=== PATIENT | female | born 1935 | race Hispanic/Latino ===

== ENCOUNTER 2018-08-11 13:05 | Inpatient (IN) | payer MEDICARE ==
--- NOTE | 2018-08-11 14:26 | C.PDOC ---
History Of Present Illness 83 Y/O FEMALE PRESENTS TO ED WITH C/O GEN WEAKNESS, DECREASED APPETITE X 1 WEEK. PATIENT STATES SHE WAS ADVISED BY PMD TO INCREASE DOSE OF AMLODIPINE 1 WEEK AGO, SINCE THEN "I FEEL LIKE EVERYTHING IS FLUTTERING AFTER TAKING THE MEDICINE". NO CP, NEAR SYNCOPE, NV, ABD PAIN OR ANY OTHER COMPLAINTS AT THIS TIME. EXAM MILD DIST NONTOXIC HEENT NEG ABD NEG LUNGS NEG CV RRR NO EDEMA REMAINDER NEG Time Seen by Provider: 08/11/18 14:23 Chief Complaint (Nursing): Chest Pain History Per: Patient History/Exam Limitations: no limitations Onset/Duration Of Symptoms: Days Past Medical History Reviewed: Historical Data, Nursing Documentation, Vital Signs Vital Signs: Last Vital Signs Temp 97.8 F 08/11/18 13:09 Pulse 80 08/11/18 13:09 Resp 22 08/11/18 13:09 BP 121/79 08/11/18 13:09 Pulse Ox 98 08/11/18 13:09 - Medical History PMH: HTN Surgical History: Appendectomy - [facility] Procedures ANGIOPLASTY OF OTHER NON-CORONARY VESSEL(S) (09/26/14) INJECT/INFUSE NEC (05/03/14) INSEJ [id number] PERIPHERAL NON-CORONARY VES STENT(S) (09/26/14) INSERTION OF ONE VASCULAR STENT (09/26/14) PROCEDURE ON SINGLE VESSEL (09/26/14) Family History: States: No Known Family Hx - Social History Hx Tobacco Use: No Hx Alcohol Use: No Hx Substance Use: No - Immunization History Hx Tetanus Toxoid Vaccination: No Hx Influenza Vaccination: No Hx Pneumococcal Vaccination: No Review Of Systems Constitutional: Positive for: Weakness. Negative for: Fever, Chills Cardiovascular: Negative for: Chest Pain Gastrointestinal: Negative for: Nausea, Vomiting Skin: Negative for: Rash Physical Exam - Physical Exam Appears: Non-toxic, Other (In mild distress) Skin: Warm, Dry, No Rash Head: Atraumatic, Normacephalic Eye(s): bilateral: Normal Inspection Oral Mucosa: Moist Neck: Normal ROM, Supple Cardiovascular: Rhythm Regular Respiratory: Normal Breath Sounds, No Rales, No Rhonchi, No Wheezing Gastrointestinal/Abdominal: Soft, No Tenderness, No Guarding, No Rebound Extremity: Normal ROM, No Pedal Edema, Capillary Refill (<2 seconds) Neurological/Psych: Oriented x3, Normal Speech, Normal Cognition ED Course And Treatment - Laboratory Results Result Diagrams: 08/11/18 15:34 08/11/18 15:34 ECG: Interpreted By Me ECG Rhythm: Sinus Rhythm ECG Interpretation: Normal Rate From EC (BPM) O2 Sat by Pulse Oximetry: 98 (RA) Pulse Ox Interpretation: Normal Reevaluation Time: 17:49 Reassessment Condition: Improved (CO GEN WEAKNESS "IM AFRAID TO BE HOME BY MYSELF". VSS) - Physician Consult Information Time Consulting Physician Contacted: 18:05 Physician Contacted: Umberto Alvarado Outcome Of Conversation: aware of er findings, will admit Disposition Counseled Patient/Family Regarding: Diagnosis, Need For Followup - Disposition Disposition: HOSPITALIZED Disposition Time: 18:07 Condition: STABLE Instructions: Weakness (ED) Forms: [facility] (Armenian) - POA Present On Arrival: None - Clinical Impression Clinical Impression: Hypokalemia, Weakness generalized, Poor appetite - Scribe Statement The provider has reviewed the documentation as recorded by the Lesleyibvaleria Holley All medical record entries made by the Lesleyibvaleria were at my direction and personally dictated by me. I have reviewed the chart and agree that the record accurately reflects my personal performance of the history, physical exam, medical decision making, and the department course for this patient. I have also personally directed, reviewed, and agree with the discharge instructions and disposition.
[2018-08-11] MEDS ORDERED: Sodium Chloride 0.9% 500 ML IV ONE ×2 (14:53→16:36)
[2018-08-11] MEDS ORDERED: Sodium Chloride 0.9% 1,000 ML IV ONE (14:53)
[2018-08-11 15:39] LABS: BASO % 0.6 % (0.0-2.0); EOS % 0.5 % (0.0-4.0); HEMOGLOBIN 11.8 g/dL (11.0-16.0); LYMPH % 12.9 % (20.0-40.0); MEAN CELL VOLUME 92.5 fL (81.0-99.0); MEAN CORPUSCULAR HEMOGLOBIN 31.2 pg (27.0-31.0); MEAN CORPUSCULAR HGB CONC 33.8 g/dL (33.0-37.0); MEAN PLATELET VOLUME 7.7 fL (7.2-11.7); MONO # 0.5 K/uL (0.0-0.8); MONO % 6.5 % (0.0-10.0); NEUT # 5.9 K/uL (1.8-7.0); NEUT % 79.5 % (50.0-75.0); NRBC % 0.1 % (0.0-2.0); RBC 3.76 Mil/uL (3.80-5.20); WHITE BLOOD COUNT 7.4 K/uL (4.8-10.8)
--- NOTE | 2018-08-11 15:41 | RAD ---
Date of service: 08/11/2018 PROCEDURE: CHEST RADIOGRAPH, 1 VIEW HISTORY: SOB COMPARISON: Comparison chest dated 11/25/2014 FINDINGS: LUNGS: Mild bibasilar atelectasis left greater than right. Additionally, there is a discrete curvilinear atelectasis or scar left CP angle region PLEURA: No pneumothorax or pleural fluid seen. CARDIOVASCULAR: Normal. OSSEOUS STRUCTURES: No significant abnormalities. VISUALIZED UPPER ABDOMEN: Normal. OTHER FINDINGS: None. IMPRESSION: Mild bibasilar atelectasis left greater than right. Additionally, there is a discrete curvilinear atelectasis or scar left CP angle region
[2018-08-11 16:06] LABS: ALB/GLOB RATIO 1.3 (1.0-2.1); ALBUMIN 3.7 g/dL (3.5-5.0)
[2018-08-11] MEDS ORDERED: Potassium Chloride 20 mEq/15 ml LIQ UD PO STA (16:07)
[2018-08-11 16:14] LABS: VENOUS BLOOD GAS BASE EXCESS 11.2 mmol/L (0.0-2.0); VENOUS BLOOD GAS PCO2 42 mmHg (40-60); VENOUS BLOOD GAS PO2 24 mm/Hg (30-55); VENOUS BLOOD PH 7.53 (7.32-7.43)
[2018-08-11] MEDS ORDERED: Sodium Chloride 0.9% 1,000 ML ONE (16:36)
[2018-08-11] MEDS ORDERED: Potassium Chloride 20 mEq/15 ml LIQ UD ONE (16:37)
[2018-08-11] MEDS ORDERED: Potassium Chloride 20 mEq 100 ML ONE (16:38)
--- NOTE | 2018-08-11 16:57 | CT ---
Date of service: 08/11/2018 PROCEDURE: CT HEAD WITHOUT CONTRAST. HISTORY: R/O Bleed COMPARISON: None available. TECHNIQUE: Axial computed tomography images were obtained through the head/brain without intravenous contrast. Radiation dose: Total exam DLP = 1015.53 mGy-cm. This CT exam was performed using one or more of the following dose reduction techniques: Automated exposure control, adjustment of the mA and/or kV according to patient size, and/or use of iterative reconstruction technique. FINDINGS: HEMORRHAGE: No intracranial hemorrhage. BRAIN: Diffuse atrophy with prominence of the ventricles and sulci noted. No mass effect or edema. Intracranial atherosclerosis. Evidence of small chronic infarction, right cerebellum. Scattered periventricular and subcortical white matter hypodensities, which are nonspecific, but often seen with chronic microvascular ischemic disease. Please note that MRI with diffusion imaging is more sensitive in the detection of acute ischemic event. VENTRICLES: No hydrocephalus. CALVARIUM: Unremarkable. PARANASAL SINUSES: Unremarkable as visualized. No significant inflammatory changes. MASTOID AIR CELLS: Unremarkable as visualized. No inflammatory changes. OTHER FINDINGS: None. IMPRESSION: Evidence of small chronic infarction within the right cerebellum. Nonspecific white matter changes. Generalized atrophy.
[2018-08-11 18:02] LABS: FREE T4 1.43 ng/dL (0.78-2.19)
[2018-08-11 18:27] LABS: SQUAMOUS EPITHIAL < 1 /hpf (0-5); URINE BILIRUBIN NEGATIVE (NEGATIVE); URINE BLOOD 1+ (NEGATIVE); URINE CLARITY Clear (Clear); URINE COLOR Straw (YELLOW); URINE GLUCOSE (UA) NORMAL (Normal); URINE LEUKOCYTE ESTERASE NEG Leu/uL (Negative); URINE PROTEIN NEGATIVE (NEGATIVE); URINE UROBILINOGEN NORMAL mg/dL (0.2-1.0)
[2018-08-11] MEDS: Potassium Chloride 20 mEq ER Tab PO SCH (22:08)
[2018-08-12 08:28] LABS: CALCIUM 8.9 mg/dl (8.6-10.4)
[2018-08-12] MEDS: Potassium Chloride 20 mEq ER Tab PO SCH (09:34)
--- NOTE | 2018-08-12 21:47 | CP.PCM.HP ---
History of Present Illness - History of Present Illness History of Present Illness: 83 years old female with PMH significant for HTN who presents to ER complaining of generalized weakness, dizziness and nausea. At initial evaluation patient found with Hypokalemia. Patient denies headache, chest pain abdominal pain, vomiting or diarrhea. Present on Admission - Present on Admission Any Indicators Present on Admission: No Review of Systems - Constitutional Constitutional: Malaise, Weakness - Cardiovascular Cardiovascular: Lightheadedness Past Patient History - Infectious Disease Hx of Infectious Diseases: None - Past Medical History & Family History Past Medical History?: Yes - Past Social History Smoking Status: Never Smoked - CARDIAC Hx Hypertension: Yes - PULMONARY Hx Respiratory Disorders: No - NEUROLOGICAL Hx Neurological Disorder: No - HEENT Hx HEENT Problems: No - RENAL Hx Chronic Kidney Disease: No - ENDOCRINE/METABOLIC Hx Endocrine Disorders: No - HEMATOLOGICAL/ONCOLOGICAL Hx Human Immunodeficiency Virus (HIV): No - INTEGUMENTARY Hx Dermatological Problems: No - MUSCULOSKELETAL/RHEUMATOLOGICAL Hx Falls: No - GENITOURINARY/GYNECOLOGICAL Hx Genitourinary Disorders: No - PSYCHIATRIC Hx Substance Use: No - SURGICAL HISTORY Hx Appendectomy: Yes - ANESTHESIA Hx Anesthesia: Yes Hx Anesthesia Reactions: No Meds Allergies/Adverse Reactions: Allergies Allergy/AdvReac Type Severity Reaction Status Date / Time iodine Allergy Verified 09/09/16 21:00 Sulfa (Sulfonamide Allergy Verified 09/09/16 21:00 Antibiotics) trimethoprim Allergy Verified 09/09/16 21:00 SEAFOOD Allergy Uncoded 09/09/16 21:00 Physical Exam - Constitutional Appears: Non-toxic, No Acute Distress - Head Exam Head Exam: ATRAUMATIC, NORMAL INSPECTION, NORMOCEPHALIC - Eye Exam Eye Exam: EOMI, Normal appearance Pupil Exam: PERRL - ENT Exam ENT Exam: Mucous Membranes Moist, Normal Exam - Neck Exam Neck exam: Positive for: Full Rom, Normal Inspection - Respiratory Exam Respiratory Exam: Clear to Auscultation Bilateral, NORMAL BREATHING PATTERN - Cardiovascular Exam Cardiovascular Exam: REGULAR RHYTHM, +S1, +S2 - GI/Abdominal Exam GI & Abdominal Exam: Normal Bowel Sounds, Soft - Neurological Exam Neurological exam: Alert, CN II-XII Intact, Oriented x3 - Psychiatric Exam Psychiatric exam: Flat Affect - Skin Skin Exam: Intact, Normal Color Results - Vital Signs Recent Vital Signs: Last Vital Signs Temp 98.1 F 08/12/18 15:27 Pulse 73 10/09/18 15:27 Resp 20 08/12/18 15:27 BP 111/65 08/12/18 15:27 Pulse Ox 96 08/12/18 16:23 - Labs Result Diagrams: 08/11/18 15:34 08/12/18 08:01 Labs: Laboratory Results - last 24 hr 08/12/18 08/12/18 08/12/18 08:01 17:05 17:05 Sodium 145 Potassium 3.2 L Chloride 102 Carbon Dioxide 34 H Anion Gap 13 BUN 14 Creatinine 1.1 Est GFR ( Amer) 57 Est GFR (Non-Af Amer) 47 Random Glucose 86 Calcium 8.9 Magnesium Ur Random Sodium 108 Ur Random Potassium 34.6 08/12/18 19:13 Sodium Potassium Chloride Carbon Dioxide Anion Gap BUN Creatinine Est GFR ( Amer) Est GFR (Non-Af Amer) Random Glucose Calcium Magnesium 2.0 Ur Random Sodium Ur Random Potassium Assessment & Plan (1) Hypokalemia Assessment and Plan: Replace Potassium. W/U Hypokalemia. Nephrology evaluation. Monitor Potassium levels. Patient case discussed with [facility]. Status: Acute (2) HTN (hypertension) Assessment and Plan: Continue same treatment. Status: Chronic Priority: Medium (3) Cerebellar infarct Assessment and Plan: Neurology evaluation. Status: Acute
[2018-08-13 07:05] LABS: BASO # 0.1 K/uL (0.0-0.2); BASO % 1.1 % (0.0-2.0); EOS # 0.3 K/uL (0.0-0.7); EOS % 4.4 % (0.0-4.0); LYMPH # 1.8 K/uL (1.0-4.3); LYMPH % 29.8 % (20.0-40.0); MEAN CELL VOLUME 93.6 fL (81.0-99.0); MEAN CORPUSCULAR HEMOGLOBIN 32.4 pg (27.0-31.0); MEAN CORPUSCULAR HGB CONC 34.6 g/dL (33.0-37.0); MONO # 0.5 K/uL (0.0-0.8); MONO % 8.9 % (0.0-10.0); NEUT # 3.4 K/uL (1.8-7.0); NEUT % 55.8 % (50.0-75.0); NRBC % 0.2 % (0.0-2.0); RBC 3.41 Mil/uL (3.80-5.20); WHITE BLOOD COUNT 6.1 K/uL (4.8-10.8)
--- NOTE | 2018-08-13 07:23 | CP.PCM.CON ---
History of Present Illness - History of Present Illness History of Present Illness: CONSULTATION DICTATED MID CEREBELLAR DYSFUNCTION -HTN- SMALL Vs LARGE VESSEL DISEASE STROKE PROPHYLAXIS ??MYELOPROLIFERATIVE DISEASE MR//EEG/CAROTID/ECHO/BLOOD WORK UP PT & FALL PRECAUTION Past Patient History - Infectious Disease Hx of Infectious Diseases: None - Past Medical History & Family History Past Medical History?: Yes - Past Social History Smoking Status: Never Smoked - CARDIAC Hx Hypertension: Yes - PULMONARY Hx Respiratory Disorders: No - NEUROLOGICAL Hx Neurological Disorder: No - HEENT Hx HEENT Problems: No - RENAL Hx Chronic Kidney Disease: No - ENDOCRINE/METABOLIC Hx Endocrine Disorders: No - HEMATOLOGICAL/ONCOLOGICAL Hx Human Immunodeficiency Virus (HIV): No - INTEGUMENTARY Hx Dermatological Problems: No - MUSCULOSKELETAL/RHEUMATOLOGICAL Hx Falls: No - GENITOURINARY/GYNECOLOGICAL Hx Genitourinary Disorders: No - PSYCHIATRIC Hx Substance Use: No - SURGICAL HISTORY Hx Appendectomy: Yes - ANESTHESIA Hx Anesthesia: Yes Hx Anesthesia Reactions: No Meds Allergies/Adverse Reactions: Allergies Allergy/AdvReac Type Severity Reaction Status Date / Time iodine Allergy Verified 09/09/16 21:00 Sulfa (Sulfonamide Allergy Verified 09/09/16 21:00 Antibiotics) trimethoprim Allergy Verified 09/09/16 21:00 SEAFOOD Allergy Uncoded 09/09/16 21:00 - Medications Medications: Current Medications Acetaminophen (Tylenol 325mg Tab) 650 mg PO Q4 PRN PRN Reason: Pain, Mild (1-3) Last Admin: 08/12/18 21:18 Dose: 650 mg Clopidogrel Bisulfate (Plavix) 75 mg PO DAILY [facility] Heparin Sodium (Porcine) (Heparin) 5,000 units SC Q12 [facility] Last Admin: 08/12/18 21:16 Dose: Not Given Lorazepam (Ativan) 0.5 mg PO HS PRN PRN Reason: Sleep Last Admin: 08/12/18 21:16 Dose: 0.5 mg Potassium Chloride (K-Dur 20 Meq Er Tab) 20 meq PO DAILY [facility] Last Admin: 08/12/18 09:34 Dose: 20 meq Spironolactone (Aldactone) 25 mg PO BID [facility] Results - Vital Signs Recent Vital Signs: Last Vital Signs Temp 98.5 F 08/13/18 00:00 Pulse 71 08/13/18 00:00 Resp 20 08/13/18 00:00 BP 126/69 08/13/18 00:00 Pulse Ox 97 08/13/18 00:00 - Labs Result Diagrams: 08/11/18 15:34 08/12/18 08:01 Labs: Laboratory Results - last 24 hr 08/12/18 08/12/18 08/12/18 08:01 17:05 17:05 Sodium 145 Potassium 3.2 L Chloride 102 Carbon Dioxide 34 H Anion Gap 13 BUN 14 Creatinine 1.1 Est GFR ( Amer) 57 Est GFR (Non-Af Amer) 47 Random Glucose 86 Calcium 8.9 Magnesium Ur Random Sodium 108 Ur Random Potassium 34.6 08/12/18 19:13 Sodium Potassium Chloride Carbon Dioxide Anion Gap BUN Creatinine Est GFR ( Amer) Est GFR (Non-Af Amer) Random Glucose Calcium Magnesium 2.0 Ur Random Sodium Ur Random Potassium
[2018-08-13 07:30] LABS: ALB/GLOB RATIO 1.3 (1.0-2.1); ALBUMIN 3.3 g/dL (3.5-5.0); ALT/SGPT 24 U/L (9-52); AST/SGOT 25 U/L (14-36); BLOOD UREA NITROGEN 15 mg/dL (7-17); CALCIUM 8.7 mg/dl (8.6-10.4); GFR NON-AFRICAN AMERICAN 53
--- NOTE | 2018-08-13 08:13 | CARD ---
APPROVED REPORT Date of service: 08/11/2018 EKG Measurement Heart [id number] <Conclusion> Normal sinus rhythm Possible Left atrial enlargement Left axis deviation Junctional ST depression, probably normal Abnormal ECG
[2018-08-13] MEDS: Potassium Chloride 20 mEq ER Tab PO SCH (09:43)
[2018-08-13 10:14] LABS: HDL CHOLESTEROL 37 mg/dL (30-70)
[2018-08-13 10:29] LABS: LDL CHOLESTEROL 58 mg/dL (0-129)
[2018-08-13 10:36] LABS: PROLACTIN 21.4 ng/mL (3.0-18.9)
[2018-08-13 11:24] LABS: FOLATE > 20.0 ng/mL
--- NOTE | 2018-08-13 14:47 | MRI ---
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 TECHNIQUE: Multiplanar, multisequence MR images of the brain were obtained without intravenous contrast enhancement. FINDINGS: HEMORRHAGE: None DWI: No evidence of an acute or early subacute infarction. Chronic lacunes noted right cerebellum no evidence of lobar or lacunar infarct on acute or subacute basis. BRAIN PARENCHYMA: Good corticomedullary differentiation is seen. Proportional, diffuse expansion of the ventriculosulcal and cisternal spaces is appreciated with white matter lucency compatible with diffuse cerebral atrophy and chronic microangiopathy. No suspicious extra-axial fluid collection is identified and the midline brain anatomy appears grossly nonfocal as imaged. There is no mass effect throughout. VENTRICLES: Unremarkable. No hydrocephalus. CRANIUM: Unremarkable. ORBITS: Grossly unremarkable. PARANASAL SINUSES/MASTOIDS: Clear VASCULAR SYSTEM: Skull base flow voids intact. OTHER FINDINGS: None. IMPRESSION: Chronic lacunes right cerebellum. No evidence of acute or subacute brain infarction at this time. Age-appropriate age-related degenerative changes are identified.
--- NOTE | 2018-08-13 14:56 | VASCLAB ---
Date of service: 08/13/2018 PROCEDURE: Carotid Duplex Exam. HISTORY: Generalized weakness COMPARISON: None available. TECHNIQUE: Grayscale and duplex Doppler evaluation of the cervical carotid and vertebral arteries were performed. The common carotid, carotid bifurcations and cervical Internal Carotid Artery (ICA) and proximal External Carotid Artery (ECA) were evaluated. The vertebral arteries were evaluated for gross patency and flow direction. Report prepared by Emmanuel Chris, BS, RVT FINDINGS: RIGHT CAROTID ARTERIES: 1. Common Carotid Artery: No significant focal plaque formation of the right common carotid artery. Maximum Peak Systolic velocity: 81 cm/sec: End-diastolic velocity 17 cm/sec. 2. Carotid Bifurcation: plaque formation. Maximum Peak Systolic velocity: 71 cm/sec: End-diastolic velocity 116 cm/sec. 3. Internal Carotid Artery: Plaque description: Calcific 3.1. Proximal Segment: Peak systolic velocity 113 cm/sec: End-diastolic velocity 30 cm/sec - % stenosis 0-15% 3.2. Middle Segment: Peak systolic velocity 96 cm/sec: End-diastolic velocity 29 cm/sec - % stenosis 0-15% 3.3. Distal Segment: Peak systolic velocity 104 cm/sec: End-diastolic velocity 27 cm/sec - % stenosis 0-15% 4. External Carotid Artery: No significant focal plaque formation. Peak systolic velocity 91 cm/sec 5. ICA/CCA Ratio: 1.4 LEFT CAROTID ARTERIES: 1. Common Carotid Artery: No significant focal plaque formation of the left common carotid artery. Maximum Peak Systolic velocity: 137 cm/sec: End-diastolic velocity 17 cm/sec. 2. Carotid Bifurcation: plaque formation. Maximum Peak Systolic velocity: 94 cm/sec: End-diastolic velocity 13 cm/sec. 3. Internal Carotid Artery: Plaque description: Calcific 3.1. Proximal Segment: Peak systolic velocity 89 cm/sec: End-diastolic velocity 27 cm/sec - % stenosis 0-15% 3.2. Middle Segment: Peak systolic velocity 79 cm/sec: End-diastolic velocity 18 cm/sec - % stenosis 0-15% 3.3. Distal Segment: Peak systolic velocity 63 cm/sec: End-diastolic velocity 20 cm/sec - % stenosis 0-15% 4. External Carotid Artery: No significant focal plaque formation. Peak systolic velocity 115 cm/sec 5. ICA/CCA Ratio: 0.9 VERTEBRAL ARTERIES: 1. Right Vertebral Artery: The right vertebral artery flow direction is antegrade. 2. Left Vertebral Artery: The left vertebral artery flow direction is antegrade. OTHER FINDINGS: 1. Right Brachial Blood pressure: 130 mmHg. 2. Left Brachial Blood pressure: 122 mmHg. IMPRESSION: RIGHT: Duplex scan does not suggest hemodynamically significant stenosis of the right extracranial carotid arteries. LEFT: Duplex scan does not suggest hemodynamically significant stenosis of the left extracranial carotid arteries.
--- NOTE | 2018-08-13 15:17 | CARD ---
APPROVED REPORT Date of service: 08/13/2018 EXAM: Two-dimensional and M-mode echocardiogram with Doppler and color Doppler. Other Information Quality : GoodRhythm : INDICATION CVA/TIA RISK FACTORS Hypertension 2D DIMENSIONS IVSd0.8 (0.7-1.1cm)LVDd3.3 (3.9-5.9cm) PWd0.9 (0.7-1.1cm)LA Icdgtr03 (18-58mL) LVDs1.9 (2.5-4.0cm)FS (%) 43.7 % LVEF (%)76.1 (>50%)LVEF (Childs's)70.87 % IVC0.00 cm M-Mode DIMENSIONS Left Atrium (MM)3.90 (2.5-4.0cm)Aortic Root2.91 (2.2-3.7cm) Aortic Cusp Exc.1.67 (1.5-2.0cm) Mitral Valve MV E Aeotrayb78.5cm/sMV A Lqkelshb870.5cm/sE/A ratio0.5 TDI Lateral E' Peak V6.40cm/sMedial E' Peak V5.90cm/sE/Lateral E'10.9 E/Medial E'11.8 Tricuspid Valve TR Peak Ucgqrdzm202dc/sTR Peak Gr.07gpGlSHLQ95vqVd LEFT VENTRICLE The left ventricle is normal size. There is normal left ventricular wall thickness. The left ventricular systolic function is normal. The left ventricular ejection fraction is within the normal range. There is normal LV segmental wall motion. Transmitral Doppler flow pattern is Grade I-abnormal relaxation pattern. RIGHT VENTRICLE The right ventricle is normal size. The right ventricular systolic function is normal. ATRIA The left atrium size is normal. The right atrium size is normal. AORTIC VALVE The aortic valve is normal in structure. No aortic regurgitation is present. There is no aortic valvular stenosis. MITRAL VALVE The mitral valve is normal in structure. There is no mitral valve regurgitation noted. TRICUSPID VALVE The tricuspid valve is normal in structure. There is mild tricuspid regurgitation. Right ventricular systolic pressure is estimated at less than 30 mmHg. PULMONIC VALVE The pulmonic valve is not well visualized. GREAT VESSELS The aortic root displays mild sclerocalcific changes The IVC is normal in size and collapses >50% with inspiration. PERICARDIAL EFFUSION There is no pericardial effusion. <Conclusion> The left ventricular systolic function is normal. Diastoilic dysfunction Grade I-abnormal relaxation pattern. The right ventricular systolic function is normal. No valvular abnormality. The aortic root displays mild sclerocalcific changes There is no pericardial effusion.
--- NOTE | 2018-08-13 20:09 | CON ---
DATE: 08/13/2018 ATTENDING PHYSICIAN: Umberto Alvarado MD LOCATION: The patient is in room #564, bed B. REASON FOR CONSULTATION: Dizziness. CHIEF COMPLAINT: The patient was brought into [facility] (Formerly [facility]) with a history of about a week of lightheadedness and losing balance. From neurological point of view, I was called in to evaluate her for further management. HISTORY OF PRESENT ILLNESS: Ms. Maeve Lee is an 83-year-old right-handed female, usual state of health, presenting with about a week history of lack of appetite, lightheadedness and losing balance, has a tendency to fall on either side. No history of fall. No history of headache. No history of loss of consciousness or any involuntary movements associating with these problems. She denies any double vision. She denies speech and swallow problem. No similar episodes happened in the past. PAST MEDICAL HISTORY: Hypertension, been on medication. PERSONAL HISTORY: Denies smoking or alcohol use. PAST SURGICAL HISTORY: Appendectomy, gallbladder surgery, hysterectomy. REVIEW OF SYSTEMS: A 12-point system being reviewed. From neuro, dizziness. MEDICATIONS: Aldactone, heparin, potassium, Tylenol. PHYSICAL EXAMINATION: VITAL SIGNS: Blood pressure 126/69, mean arterial pressure of 88, respiratory rate 18, pulse rate 71 and regular, temperature 98.5 degrees Fahrenheit. NECK: Supple. No carotid bruits. HEART: S1 and S2 regular. CHEST: Fair air entry. EXTREMITIES: No edema in legs. NEUROLOGICAL: Mental status; she is awake, alert and oriented to person, place and time. Speech is clear. Naming, repetition, fluency, comprehension intact. She seems to be depressed. No sign of hallucination. No sign of suicidal ideation. Cranial nerve; visual field intact. Pupils reactive to light. Extraocular movement intact. No primary gaze nystagmus. No facial sensory deficit. No facial asymmetry. Hearing is normal. Tongue is midline. Good gag. Motor; outstretched hand with eyes closed, no drift noted. Power is symmetric on either side. Deep tendon reflexes in biceps, brachialis, triceps 1+ on either side. Both knees are 2+. Both ankles are 1+. Plantars are downgoing. Sensory examination is grossly intact. No cortical sensory loss. Coordination, lxvqfq-igrd-[id number] test is intact. Gait deferred at this time. CONCLUSION: As per neurological examination, Ms. Maeve Lee has been presenting with subacute process of lightheadedness and losing balance all consistent with mid cerebellar dysfunction. Considering the history of hypertension, probably small vessel disease affecting her posterior fossa, ischemic process, probably the cerebellum. DIAGNOSTIC DATA: CT of the head has been reviewed consistent with right cerebellar infarct, which seems to be subacute versus old. LABORATORY DATA: Blood workup; WBC 7.4, hemoglobin 11.8, hematocrit 34.8, platelet 438. Sodium 145, potassium 3.2, chloride 102, bicarbonate 34, BUN 14, creatinine 1.1, GFR 57. Urine shows 1+ hematuria. RECOMMENDATIONS: 1. The patient should be on stroke prophylaxis including antiplatelet, statin and probable angiotensin receptor blockers which would be preferable. 2. Carotid Doppler to assess the stenosis. 3. MRI of the brain to further establish stroke involvement in the cerebellum as well as the other part of the brain. 4. Echocardiogram to rule out any cardiac source for her stroke. 5. The patient should be out of bed and physical therapy should be instituted. 6. The patient should be hydrated well. Keep her on fall precaution. The patient condition has been well discussed. The patient will be followed closely with you. Davon Siegel MD
--- NOTE | 2018-08-13 20:56 | CP.PCM.PN ---
Subjective - Date & Time of Evaluation Date of Evaluation: 08/13/18 Time of Evaluation: 20:54 - Subjective Subjective: Patient lying in bed in no apparent distress. Objective - Vital Signs/Intake and Output Vital Signs (last 24 hours): Temp Pulse Resp BP Pulse Ox 97.8 F 88 20 151/79 H 95 08/13/18 16:41 08/13/18 16:41 08/13/18 16:41 08/13/18 17:36 08/13/18 16:41 - Medications Medications: Current Medications Acetaminophen (Tylenol 325mg Tab) 650 mg PO Q4 PRN PRN Reason: Pain, Mild (1-3) Last Admin: 08/12/18 21:18 Dose: 650 mg Clopidogrel Bisulfate (Plavix) 75 mg PO DAILY [facility] Last Admin: 08/13/18 09:43 Dose: 75 mg Heparin Sodium (Porcine) (Heparin) 5,000 units SC Q12 [facility] Last Admin: 08/13/18 09:43 Dose: 5,000 units Lorazepam (Ativan) 0.5 mg PO HS PRN PRN Reason: Sleep Last Admin: 08/12/18 21:16 Dose: 0.5 mg Potassium Chloride (K-Dur 20 Meq Er Tab) 20 meq PO DAILY [facility] Last Admin: 08/13/18 09:43 Dose: 20 meq Spironolactone (Aldactone) 25 mg PO BID [facility] Last Admin: 08/13/18 17:37 Dose: 25 mg - Labs Labs: 08/13/18 06:27 08/13/18 06:27 - Constitutional Appears: Well, Non-toxic, No Acute Distress - Head Exam Head Exam: ATRAUMATIC, NORMAL INSPECTION, NORMOCEPHALIC - Eye Exam Eye Exam: EOMI, Normal appearance, PERRL - Neck Exam Neck Exam: Full ROM, Normal Inspection - Respiratory Exam Respiratory Exam: Clear to Ausculation Bilateral, NORMAL BREATHING PATTERN - Cardiovascular Exam Cardiovascular Exam: REGULAR RHYTHM - GI/Abdominal Exam GI & Abdominal Exam: Soft, Normal Bowel Sounds - Extremities Exam Extremities Exam: Full ROM, Normal Capillary Refill, Normal Inspection - Back Exam Back Exam: NORMAL INSPECTION - Neurological Exam Neurological Exam: Alert, Awake, CN II-XII Intact, Oriented x3 Assessment and Plan (1) Hypokalemia Assessment & Plan: BMP in AM. Continue same treatment. Status: Acute (2) HTN (hypertension) Assessment & Plan: Continue same treatment. Status: Chronic (3) Cerebellar infarct Assessment & Plan: Continue same treatment. Status: Acute
--- NOTE | 2018-08-14 05:55 | CP.PCM.CON ---
History of Present Illness - History of Present Illness History of Present Illness: REASONS FOR CONSULT : UNPROVOKED HYPO KALEMIA WITH K 2.4 0N ADMISSION MET ALKALOSIS WITH PH 7.52 AND HCO2 34 ALL EMR REVIEWED ALL LABS REVIEWED THOUROUGHLY GOING BACK TO ALL THE ADMISSIONS SINCE 2010 PT DID HAVE HYPOKALEMIA ON HER ADMISSION IN 2014 K WAS 3.2 PT STATES THAT SHE IS AWARE OF HAVING LOW K ONCE BEFO 83 years old female with PMH significant for HTN who presents to ER com plaining of generalized weakness, dizziness and nausea. At initial evaluation patient found with Hypokalemia. Patient denies headache, chest pain abdominal pain, vomiting or diarrhea. Present on Admission - Present on Admission Any Indicators Present on Admission: No Review of Systems - Constitutional Constitutional: Malaise, Weakness - Cardiovascular Cardiovascular: Lightheadedness Past Patient History - Infectious Disease Hx of Infectious Diseases: None - Past Medical History & Family History Past Medical History?: Yes - Past Social History Smoking Status: Never Smoked - CARDIAC Hx Hypertension: Yes - PULMONARY Hx Respiratory Disorders: No - NEUROLOGICAL Hx Neurological Disorder: No - HEENT Hx HEENT Problems: No - RENAL Hx Chronic Kidney Disease: No - ENDOCRINE/METABOLIC Hx Endocrine Disorders: No - HEMATOLOGICAL/ONCOLOGICAL Hx Human Immunodeficiency Virus (HIV): No - INTEGUMENTARY Hx Dermatological Problems: No - MUSCULOSKELETAL/RHEUMATOLOGICAL Hx Falls: No - GENITOURINARY/GYNECOLOGICAL Hx Genitourinary Disorders: No - PSYCHIATRIC Hx Substance Use: No - SURGICAL HISTORY Hx Appendectomy: Yes - ANESTHESIA Hx Anesthesia: Yes Hx Anesthesia Reactions: No Meds Allergies/Adverse Reactions: Allergies Allergy/AdvReac Type Severity Reaction Status Date / Time iodine Allergy Verified 09/09/16 21:00 Sulfa (Sulfonamide Allergy Verified 09/09/16 21:00 Antibiotics) trimethoprim Allergy Verified 09/09/16 21:00 SEAFOOD Allergy Uncoded 09/09/16 21:00 Past Patient History - Infectious Disease Hx of Infectious Diseases: None - Past Medical History & Family History Past Medical History?: Yes - Past Social History Smoking Status: Never Smoked - CARDIAC Hx Hypertension: Yes - PULMONARY Hx Respiratory Disorders: No - NEUROLOGICAL Hx Neurological Disorder: No - HEENT Hx HEENT Problems: No - RENAL Hx Chronic Kidney Disease: No - ENDOCRINE/METABOLIC Hx Endocrine Disorders: No - HEMATOLOGICAL/ONCOLOGICAL Hx Human Immunodeficiency Virus (HIV): No - INTEGUMENTARY Hx Dermatological Problems: No - MUSCULOSKELETAL/RHEUMATOLOGICAL Hx Falls: No - GENITOURINARY/GYNECOLOGICAL Hx Genitourinary Disorders: No - PSYCHIATRIC Hx Substance Use: No - SURGICAL HISTORY Hx Appendectomy: Yes - ANESTHESIA Hx Anesthesia: Yes Hx Anesthesia Reactions: No Meds Allergies/Adverse Reactions: Allergies Allergy/AdvReac Type Severity Reaction Status Date / Time iodine Allergy Verified 09/09/16 21:00 Sulfa (Sulfonamide Allergy Verified 09/09/16 21:00 Antibiotics) trimethoprim Allergy Verified 09/09/16 21:00 SEAFOOD Allergy Uncoded 09/09/16 21:00 - Medications Medications: Current Medications Acetaminophen (Tylenol 325mg Tab) 650 mg PO Q4 PRN PRN Reason: Pain, Mild (1-3) Last Admin: 08/13/18 22:07 Dose: 650 mg Clopidogrel Bisulfate (Plavix) 75 mg PO DAILY [facility] Last Admin: 08/13/18 09:43 Dose: 75 mg Heparin Sodium (Porcine) (Heparin) 5,000 units SC Q12 [facility] Last Admin: 08/13/18 22:08 Dose: 5,000 units Lorazepam (Ativan) 0.5 mg PO HS PRN PRN Reason: Sleep Last Admin: 08/13/18 22:08 Dose: 0.5 mg Potassium Chloride (K-Dur 20 Meq Er Tab) 20 meq PO DAILY [facility] Last Admin: 08/13/18 09:43 Dose: 20 meq Spironolactone (Aldactone) 25 mg PO BID [facility] Last Admin: 08/13/18 17:37 Dose: 25 mg Results - Vital Signs Recent Vital Signs: Last Vital Signs Temp 98.2 F 08/13/18 23:30 Pulse 81 08/13/18 23:30 Resp 20 08/13/18 23:30 BP 96/60 L 08/13/18 23:30 Pulse Ox 96 08/13/18 23:30 - Labs Result Diagrams: 08/13/18 06:27 08/13/18 06:27 Labs: Laboratory Results - last 24 hr 08/13/18 08/13/18 08/13/18 06:27 06:27 09:59 WBC 6.1 RBC 3.41 L Hgb 11.0 Hct 31.9 L MCV 93.6 MCH 32.4 H MCHC 34.6 RDW 14.0 Plt Count 371 MPV 8.0 Neut % (Auto) 55.8 Lymph % (Auto) 29.8 Hand % (Auto) 8.9 Eos % (Auto) 4.4 H Baso % (Auto) 1.1 Neut # (Auto) 3.4 Lymph # (Auto) 1.8 Hand # (Auto) 0.5 Eos # (Auto) 0.3 Baso # (Auto) 0.1 Sodium 141 Potassium 3.5 L Chloride 100 Carbon Dioxide 32 H Anion Gap 13 BUN 15 Creatinine 1.0 Est GFR ( Amer) > 60 Est GFR (Non-Af Amer) 53 Random Glucose 81 Calcium 8.7 Total Bilirubin 0.3 AST 25 ALT 24 Alkaline Phosphatase 91 Total Protein 5.9 L Albumin 3.3 L Globulin 2.6 Albumin/Globulin Ratio 1.3 Triglycerides 81 Cholesterol 119 LDL Cholesterol Direct 58 HDL Cholesterol 37 Vitamin B12 851 Folate > 20.0 Homocysteine 8.6 Prolactin 21.4 H Assessment & Plan - Assessment and Plan (Free Text) Assessment: HYPOKALEMIA WITH MET ALKALOSIS R/O LURDES SYNDROME .. R/O BARTER SYNDROME HTN .. MILD H/O AAA ENDO REPAIRIN 2014 P ; START ALDACTON 25 MG PO BID HOLD AMLODIPIN F/U ON K LEVEL - Date & Time Date: 08/13/18 Time: 13:00
[2018-08-14 08:09] LABS: BASO # 0.1 K/uL (0.0-0.2); BASO % 0.9 % (0.0-2.0); EOS # 0.3 K/uL (0.0-0.7); EOS % 5.1 % (0.0-4.0); HEMOGLOBIN 12.3 g/dL (11.0-16.0); LYMPH # 1.8 K/uL (1.0-4.3); LYMPH % 30.7 % (20.0-40.0); MEAN CELL VOLUME 92.4 fL (81.0-99.0); MEAN CORPUSCULAR HEMOGLOBIN 31.7 pg (27.0-31.0); MEAN CORPUSCULAR HGB CONC 34.3 g/dL (33.0-37.0); MEAN PLATELET VOLUME 7.6 fL (7.2-11.7); MONO # 0.5 K/uL (0.0-0.8); MONO % 7.7 % (0.0-10.0); NEUT # 3.3 K/uL (1.8-7.0); NEUT % 55.6 % (50.0-75.0); RBC 3.86 Mil/uL (3.80-5.20); RED CELL DISTRIBUTION WIDTH 14.4 % (11.5-14.5)
[2018-08-14 08:23] LABS: BLOOD UREA NITROGEN 16 mg/dL (7-17); CALCIUM 9.3 mg/dl (8.6-10.4); GFR NON-AFRICAN AMERICAN 43
[2018-08-14] MEDS: Potassium Chloride 20 mEq ER Tab PO SCH (09:29)
--- NOTE | 2018-08-14 11:11 | RAD ---
Date of service: 08/14/2018 HISTORY: Chest Pain COMPARISON: 08/11/2018 FINDINGS: LUNGS: There is subsegmental atelectasis/scarring in the lower lobes. No focal consolidation. PLEURA: No significant pleural effusion identified, no pneumothorax apparent. CARDIOVASCULAR: Normal. OSSEOUS STRUCTURES: No significant abnormalities. VISUALIZED UPPER ABDOMEN: Normal. OTHER FINDINGS: None. IMPRESSION: No acute findings.
[2018-08-14 14:12] LABS: CK-MB 0.26 ng/mL (0.0-3.38)
--- NOTE | 2018-08-14 14:38 | PN ---
DATE: 08/14/2018 TIME OF EVALUATION: 07:20 a.m. NEUROLOGICAL PROBLEM: Possible vertebrobasilar insufficiency versus vestibulopathy. PHYSICAL EXAMINATION: VITAL SIGNS: Blood pressure 90/60, mean arterial pressure of 72, respiratory rate 18, pulse rate 81 and regular, temperature 98.2. The patient is complaining of left-sided chest discomfortness and right occipital region pain. Examination which is unchanged. Cranial nerve examinations are normal. Motor examination is normal. No finger-nose testing abnormality. Deep tendon reflexes are symmetric on either side. 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 Rest of the examinations are normal. The patient is on antiplatelets. Continue the blood pressure medication. Keep the mean arterial pressure of 100. The patient should get out of the bed. Considering her chest discomfortness, I asked the nurse to do stat electrocardiogram to rule out any cardiac pathology. The patient will be followed during the hospitalization. Davon Siegel MD
--- NOTE | 2018-08-14 16:44 | CP.PCM.PN ---
Subjective - Date & Time of Evaluation Date of Evaluation: 08/14/18 Time of Evaluation: 16:41 - Subjective Subjective: Patient complains of Chest pain, denies shortness of breath or dizziness. . Objective - Vital Signs/Intake and Output Vital Signs (last 24 hours): Temp Pulse Resp BP Pulse Ox 97.6 F 81 18 150/76 100 08/14/18 15:00 08/14/18 16:13 08/14/18 15:00 08/14/18 15:00 08/14/18 15:41 Intake and Output: 08/14/18 08/14/18 06:59 18:59 Intake Total 500 700 Balance 500 700 - Medications Medications: Current Medications Acetaminophen (Tylenol 325mg Tab) 650 mg PO Q4 PRN PRN Reason: Pain, Mild (1-3) Last Admin: 08/13/18 22:07 Dose: 650 mg Clopidogrel Bisulfate (Plavix) 75 mg PO DAILY [facility] Last Admin: 08/14/18 09:29 Dose: 75 mg Heparin Sodium (Porcine) (Heparin) 5,000 units SC Q12 [facility] Last Admin: 08/14/18 09:29 Dose: 5,000 units Lorazepam (Ativan) 0.5 mg PO HS PRN PRN Reason: Sleep Last Admin: 08/13/18 22:08 Dose: 0.5 mg Potassium Chloride (K-Dur 20 Meq Er Tab) 20 meq PO DAILY [facility] Last Admin: 08/14/18 09:29 Dose: 20 meq Spironolactone (Aldactone) 25 mg PO BID [facility] Last Admin: 08/14/18 09:29 Dose: 25 mg - Labs Labs: 08/14/18 08:00 08/14/18 08:00 - Constitutional Appears: Well, Non-toxic - Head Exam Head Exam: ATRAUMATIC, NORMAL INSPECTION, NORMOCEPHALIC - Eye Exam Eye Exam: EOMI Pupil Exam: PERRL - Neck Exam Neck Exam: Full ROM, Normal Inspection - Respiratory Exam Respiratory Exam: Clear to Ausculation Bilateral, NORMAL BREATHING PATTERN - Cardiovascular Exam Cardiovascular Exam: REGULAR RHYTHM, +S1, +S2 - GI/Abdominal Exam GI & Abdominal Exam: Soft, Normal Bowel Sounds - Extremities Exam Extremities Exam: Full ROM, Normal Capillary Refill, Normal Inspection Assessment and Plan (1) Hypokalemia Assessment & Plan: Continue Spironolactone. Status: Resolved (2) HTN (hypertension) Assessment & Plan: Continue same treatment. Status: Chronic (3) Cerebellar infarct Assessment & Plan: Continue Plavix. Status: Acute (4) Chest pain Assessment & Plan: Cardiac Enzymes x 3. ECG. CXR. Cardiology evaluation. Status: Acute
--- NOTE | 2018-08-14 17:14 | CP.PCM.CON ---
History of Present Illness - History of Present Illness History of Present Illness: I was asked to see patient by Dr Alvarado. Patient is a 83 year old female with HTN, hypercholsterolemia who initially presented with ataxia. She guido generalized weakness. The patient is currently being evaluated by Dr Siegel. The patient states symptoms occur at rest. She has not had chest pain previously. Review of Systems - Constitutional Constitutional: absent: As Per HPI, Anorexia, Chills, Daytime Sleepiness, Excessive Sweating, Fatigue, Fever, Frequent Falls, Headache, Increased Appetite, Lethargy, Malaise, Night Sweats, Snoring, Sleep Apnea, Weight Gain, W eight Loss, Weakness, Other - EENT Eyes: absent: As Per HPI, Blind Spots, Blurred Vision, Change in Vision, Decreased Night Vision, Diplopia, Discharge, Dry Eye, Exophthalmos, Floaters, Irritation, Itchy Eyes, Loss of Peripheral Vision, Pain, Photophobia, Requires Corrective Lenses, Sees Flashes, Spots in Vision, Tunnel Vision, Other Visual Disturbances, Loss of Vision, Other Ears: absent: As Per HPI, Decreased Hearing, Ear Discharge, Ear Pain, Tinnitus, Abnormal Hearing, Disequilibrium, Dizziness, Other Nose/Mouth/Throat: absent: As Per HPI, Epistaxis, Nasal Congestion, Nasal Discharge, Nasal Obstruction, Nasal Trauma, Nose Pain, Post Nasal Drip, Sinus Pain, Sinus Pressure, Bleeding Gums, Change in Voice, Dental Pain, Dry Mouth, Dysphagia, Halitosis, Hoarsness, Lip Swelling, Mouth Lesions, Mouth Pain, Odynophagia, Sore Throat, Throat Swelling, Tongue Swelling, Facial Pain, Neck Pain, Neck Mass, Other - Breasts Breasts: absent: As Per HPI, Change in Shape, Mass, Pain, Nipple Discharge, Nipple Inversion, Skin Changes, Swelling, Other - Cardiovascular Cardiovascular: Chest Pain at Rest - Respiratory Respiratory: absent: As Per HPI, Cough, Dyspnea, Hemoptysis, Dyspnea on Exertio n, Wheezing, Snoring, Stridor, Pain on Inspiration, Chest Congestion, Excessive Mucous Production, Change in Mucous Color, Pain with Coughing, Other - Gastrointestinal Gastrointestinal: absent: As Per HPI, Abdominal Pain, Belching, Bloating, Change in Bowel Habits, Change in Stool Character, Coffee Ground Emesis, Constipation, Cramping, Diarrhea, Dyspepsia, Dysphagia, Early Satiety, Excessive Flatus, Fecal Incontinence, Heartburn, Hematemesis, Hematochezia, Loose Stools, Melena, Nausea, Odynophagia, Temesmus, Vomiting, Other - Genitourinary Genitourinary: absent: As Per HPI, Change in Urinary Stream, Difficulty Uri nating, Dysuria, Flank Pain, Hematuria, Pyuria, Nocturia, Urinary Incontinence, Urinary Frequency, Urinary Hesitance, Urinary Urgency, Voiding Freq/Small Amts, Freq UTI, Hx Renal/Bladder Calculi, Hx /Renal Surgery, Bladder Distension, Other - Musculoskeletal Musculoskeletal: absent: As Per HPI, Abnormal Gait, Arthralgias, Atrophy, Back Pain, Deformity, Joint Swelling, Limited Range of Motion, Loss of Height, Muscle Cramps, Muscle Weakness, Myalgias, Neck Pain, Numbness, Radiating Pain into Limb, Stiffness, Tingling, Other - Integumentary Integumentary: absent: As Per HPI, Acne, Alopecia, Bleeding Lesions, Change in Hair, Change in Nails, Change in Pigmentation, Changing Lesions, Dry Skin, Erythema, Furuncle, Hirsutism, Lesions, New Lesions, Non-Healing Lesions, Photosensitivity, Pruritus, Rash, Skin Pain, Skin Ulcer, Sores, Striae, Swelling, Unusual Bruising, Wounds, Jaundice, Other - Neurological Neurological: Disequilibrium - Psychiatric Psychiatric: absent: As Per HPI, Abnormal Sleep Pattern, Anhedonia, Anxiety, Auditory Hallucinations, Behavioral Changes, Change in Appetite, Change in Libido, Confusion, Depression, Difficulty Concentrating, Hallucinations, Homicidal Ideation, Hopelessness, Irritability, Memory Loss, Mood Swings, Panic Attacks, Paranoia, Suicidal Ideation, Visual Hallucinations, Tactile Hallucinations, Other - Endocrine Endocrine: absent: As Per HPI, Change in Body Appearance, Change in Libido, Cold Intolorance, Deepening of Voice, Excessive Sweating, Fatigue, Flushing, Heat Intolorance, Increase in Ring/Shoe/Hat Size, Palpitations, Polydipsia, Polyphagia, Polyuria, Other - Hematologic/Lymphatic Hematologic: absent: As Per HPI, Easy Bleeding, Easy Bruising, Lymphadenopathy, Other Past Patient History - Infectious Disease Hx of Infectious Diseases: None - Past Medical History & Family History Past Medical History?: Yes - Past Social History Smoking Status: Never Smoked - CARDIAC Hx Hypertension: Yes - PULMONARY Hx Respiratory Disorders: No - NEUROLOGICAL Hx Neurological Disorder: No - HEENT Hx HEENT Problems: No - RENAL Hx Chronic Kidney Disease: No - ENDOCRINE/METABOLIC Hx Endocrine Disorders: No - HEMATOLOGICAL/ONCOLOGICAL Hx Human Immunodeficiency Virus (HIV): No - INTEGUMENTARY Hx Dermatological Problems: No - MUSCULOSKELETAL/RHEUMATOLOGICAL Hx Falls: No - GENITOURINARY/GYNECOLOGICAL Hx Genitourinary Disorders: No - PSYCHIATRIC Hx Substance Use: No - SURGICAL HISTORY Hx Appendectomy: Yes - ANESTHESIA Hx Anesthesia: Yes Hx Anesthesia Reactions: No Meds Allergies/Adverse Reactions: Allergies Allergy/AdvReac Type Severity Reaction Status Date / Time iodine Allergy Verified 09/09/16 21:00 Sulfa (Sulfonamide Allergy Verified 09/09/16 21:00 Antibiotics) trimethoprim Allergy Verified 09/09/16 21:00 SEAFOOD Allergy Uncoded 09/09/16 21:00 - Medications Medications: Current Medications Acetaminophen (Tylenol 325mg Tab) 650 mg PO Q4 PRN PRN Reason: Pain, Mild (1-3) Last Admin: 08/13/18 22:07 Dose: 650 mg Clopidogrel Bisulfate (Plavix) 75 mg PO DAILY [facility] Last Admin: 08/14/18 09:29 Dose: 75 mg Heparin Sodium (Porcine) (Heparin) 5,000 units SC Q12 [facility] Last Admin: 08/14/18 09:29 Dose: 5,000 units Lorazepam (Ativan) 0.5 mg PO HS PRN PRN Reason: Sleep Last Admin: 08/13/18 22:08 Dose: 0.5 mg Potassium Chloride (K-Dur 20 Meq Er Tab) 20 meq PO DAILY [facility] Last Admin: 08/14/18 09:29 Dose: 20 meq Spironolactone (Aldactone) 25 mg PO BID [facility] Last Admin: 08/14/18 09:29 Dose: 25 mg Physical Exam - Constitutional Appears: Non-toxic - Head Exam Head Exam: NORMAL INSPECTION - Eye Exam Eye Exam: Normal appearance - ENT Exam ENT Exam: Mucous Membranes Moist - Neck Exam Neck exam: Positive for: Full Rom - Cardiovascular Exam Cardiovascular Exam: REGULAR RHYTHM - GI/Abdominal Exam GI & Abdominal Exam: Normal Bowel Sounds - Rectal Exam Rectal Exam: Deferred - Extremities Exam Extremities exam: Negative for: pedal edema - Back Exam Back exam: NORMAL INSPECTION - Neurological Exam Neurological exam: Alert, Oriented x3 - Psychiatric Exam Psychiatric exam: Normal Affect - Skin Skin Exam: Normal Color Results - Vital Signs Recent Vital Signs: Last Vital Signs Temp 97.6 F 08/14/18 15:00 Pulse 81 08/14/18 16:13 Resp 18 08/14/18 15:00 BP 150/76 08/14/18 15:00 Pulse Ox 100 08/14/18 15:41 - Labs Result Diagrams: 08/14/18 08:00 08/14/18 08:00 Labs: Laboratory Results - last 24 hr 08/12/18 08/14/18 08/14/18 17:05 08:00 08:00 WBC 6.0 RBC 3.86 Hgb 12.3 Hct 35.7 MCV 92.4 MCH 31.7 H MCHC 34.3 RDW 14.4 Plt Count 403 H MPV 7.6 Neut % (Auto) 55.6 Lymph % (Auto) 30.7 [place] % (Auto) 7.7 Eos % (Auto) 5.1 H Baso % (Auto) 0.9 Neut # (Auto) 3.3 Lymph # (Auto) 1.8 [place] # (Auto) 0.5 Eos # (Auto) 0.3 Baso # (Auto) 0.1 Sodium 141 Potassium 3.7 Chloride 97 L Carbon Dioxide 33 H Anion Gap 15 BUN 16 Creatinine 1.2 Est GFR ( Amer) 52 Est GFR (Non-Af Amer) 43 Random Glucose 85 Calcium 9.3 Total Creatine Kinase 23 L CK-MB (Mass) 0.30 Troponin I < 0.0120 Urine Chloride 122 08/14/18 13:41 WBC RBC Hgb Hct MCV MCH MCHC RDW Plt Count MPV Neut % (Auto) Lymph % (Auto) [place] % (Auto) Eos % (Auto) Baso % (Auto) Neut # (Auto) Lymph # (Auto) [place] # (Auto) Eos # (Auto) Baso # (Auto) Sodium Potassium Chloride Carbon Dioxide Anion Gap BUN Creatinine Est GFR ( Amer) Est GFR (Non-Af Amer) Random Glucose Calcium Total Creatine Kinase 26 L CK-MB (Mass) 0.26 Troponin I < 0.0120 Urine Chloride - EKG Data EKG Interpreted by: Myself EKG shows normal: Sinus rhythm Assessment & Plan (1) Chest pain Assessment and Plan: no current angina. cardiac enzymes are negative. recommend medical therapy. add statin. continue Plavix. will perform outpatient stress test for risk factor stratification. Status: Acute (2) HTN (hypertension) Assessment and Plan: blood pressure control Status: Chronic Priority: Medium
[2018-08-14 19:56] LABS: CK-MB 0.31 ng/mL (0.0-3.38)
[2018-08-15 00:56] VITALS: RESP 20
[2018-08-15] MEDS: Potassium Chloride 20 mEq ER Tab PO SCH (10:41)
[2018-08-15 11:46] LABS: HEMOGLOBIN 11.6 g/dL (11.0-16.0); MEAN CELL VOLUME 93.3 fL (81.0-99.0); MEAN CORPUSCULAR HGB CONC 34.3 g/dL (33.0-37.0); RBC 3.63 Mil/uL (3.80-5.20); RED CELL DISTRIBUTION WIDTH 14.3 % (11.5-14.5); WHITE BLOOD COUNT 5.9 K/uL (4.8-10.8)
[2018-08-15 12:20] LABS: BLOOD UREA NITROGEN 16 mg/dL (7-17); CALCIUM 9.2 mg/dl (8.6-10.4); GFR NON-AFRICAN AMERICAN 53
--- NOTE | 2018-08-15 15:26 | CARD ---
APPROVED REPORT Date of service: 08/14/2018 EKG Measurement Heart [id number] OR 160P [id number] <Conclusion> reversed arm leads needs repeats Abnormal ECG
--- NOTE | 2018-08-15 18:32 | CP.PCM.PN ---
Subjective - Date & Time of Evaluation Date of Evaluation: 08/15/18 Time of Evaluation: 18:30 - Subjective Subjective: Patient complaints of dizziness. Objective - Vital Signs/Intake and Output Vital Signs (last 24 hours): Temp Pulse Resp BP Pulse Ox 98 F 92 H 20 123/72 99 08/15/18 16:00 08/15/18 16:42 08/15/18 16:00 08/15/18 16:00 08/15/18 16:00 Intake and Output: 08/15/18 08/15/18 06:59 18:59 Intake Total 300 Balance 300 - Medications Medications: Current Medications Acetaminophen (Tylenol 325mg Tab) 650 mg PO Q4 PRN PRN Reason: Pain, Mild (1-3) Last Admin: 08/13/18 22:07 Dose: 650 mg Clopidogrel Bisulfate (Plavix) 75 mg PO DAILY [facility] Last Admin: 08/15/18 10:41 Dose: 75 mg Heparin Sodium (Porcine) (Heparin) 5,000 units SC Q12 [facility] Last Admin: 08/15/18 10:41 Dose: 5,000 units Lorazepam (Ativan) 0.5 mg PO HS PRN PRN Reason: Sleep Last Admin: 08/14/18 21:21 Dose: 0.5 mg Potassium Chloride (K-Dur 20 Meq Er Tab) 20 meq PO DAILY [facility] Last Admin: 08/15/18 10:41 Dose: 20 meq Rosuvastatin Calcium (Crestor) 10 mg PO HS [facility] Last Admin: 08/14/18 21:24 Dose: 10 mg Spironolactone (Aldactone) 25 mg PO BID [facility] Last Admin: 08/15/18 18:07 Dose: 25 mg - Labs Labs: 08/15/18 11:31 08/15/18 11:31 - Constitutional Appears: Well, No Acute Distress - Head Exam Head Exam: ATRAUMATIC, NORMAL INSPECTION, NORMOCEPHALIC - Eye Exam Eye Exam: EOMI Pupil Exam: PERRL - Neck Exam Neck Exam: Full ROM, Normal Inspection - Respiratory Exam Respiratory Exam: Clear to Ausculation Bilateral, NORMAL BREATHING PATTERN - Cardiovascular Exam Cardiovascular Exam: REGULAR RHYTHM, +S1, +S2 - GI/Abdominal Exam GI & Abdominal Exam: Soft, Normal Bowel Sounds - Neurological Exam Neurological Exam: Alert, Awake, CN II-XII Intact, Oriented x3 Assessment and Plan (1) Hypokalemia Assessment & Plan: BMP in AM. Planning Discharge SubAcute Rehab. Status: Resolved (2) HTN (hypertension) Assessment & Plan: Continue same treatment. Status: Chronic (3) Cerebellar infarct Assessment & Plan: Continue same treatment. Status: Acute (4) Chest pain Status: Resolved
[2018-08-16] MEDS: raNITIdine HCl 150 mg/10 ml Soln Cup PO SCH ×3 (08:08→17:58)
[2018-08-16 08:48] LABS: CALCIUM 9.5 mg/dl (8.6-10.4)
[2018-08-16] MEDS: Potassium Chloride 20 mEq ER Tab PO SCH (11:36)
--- NOTE | 2018-08-16 16:46 | CP.PCM.PN ---
Subjective - Date & Time of Evaluation Date of Evaluation: 08/16/18 Time of Evaluation: 16:44 - Subjective Subjective: Patient complaints of Epigastric discomfort. Objective - Vital Signs/Intake and Output Vital Signs (last 24 hours): Temp Pulse Resp BP Pulse Ox 98 F 90 20 138/74 97 08/16/18 15:00 08/16/18 15:00 08/16/18 15:00 08/16/18 15:00 08/16/18 15:00 - Medications Medications: Current Medications Acetaminophen (Tylenol 325mg Tab) 650 mg PO Q4 PRN PRN Reason: Pain, Mild (1-3) Last Admin: 08/13/18 22:07 Dose: 650 mg Clopidogrel Bisulfate (Plavix) 75 mg PO DAILY [facility] Last Admin: 08/16/18 11:36 Dose: 75 mg Heparin Sodium (Porcine) (Heparin) 5,000 units SC Q12 [facility] Last Admin: 08/16/18 11:36 Dose: 5,000 units Lorazepam (Ativan) 0.5 mg PO HS PRN PRN Reason: Sleep Last Admin: 08/15/18 22:27 Dose: 0.5 mg Ondansetron HCl (Zofran Inj) 4 mg IVP ONCE PRN PRN Reason: Nausea/Vomiting Potassium Chloride (K-Dur 20 Meq Er Tab) 20 meq PO DAILY [facility] Last Admin: 08/16/18 11:36 Dose: 20 meq Ranitidine HCl (Zantac Soln 5ml) 150 mg PO BID [facility] Last Admin: 08/16/18 09:25 Dose: Not Given Rosuvastatin Calcium (Crestor) 10 mg PO HS [facility] Last Admin: 08/15/18 22:27 Dose: 10 mg Spironolactone (Aldactone) 25 mg PO BID [facility] Last Admin: 08/16/18 11:36 Dose: 25 mg - Labs Labs: 08/15/18 11:31 08/16/18 08:27 - Constitutional Appears: Well, Non-toxic, No Acute Distress - Head Exam Head Exam: ATRAUMATIC, NORMAL INSPECTION, NORMOCEPHALIC - Neck Exam Neck Exam: Full ROM, Normal Inspection - Respiratory Exam Respiratory Exam: Clear to Ausculation Bilateral, NORMAL BREATHING PATTERN - Cardiovascular Exam Cardiovascular Exam: REGULAR RHYTHM, +S1, +S2 - GI/Abdominal Exam GI & Abdominal Exam: Soft, Normal Bowel Sounds - Extremities Exam Extremities Exam: Full ROM, Normal Capillary Refill, Normal Inspection Assessment and Plan (1) Hypokalemia Assessment & Plan: Continue Spironolactone. Status: Resolved (2) HTN (hypertension) Assessment & Plan: Continue same treatment. Status: Chronic (3) Cerebellar infarct Status: Acute (4) Chest pain Status: Resolved (5) Gastritis Assessment & Plan: Ranitidine PO BID. Status: Acute
[2018-08-17] MEDS: raNITIdine HCl 150 mg/10 ml Soln Cup PO SCH ×2 (10:36→18:27)
[2018-08-17] MEDS: Potassium Chloride 20 mEq ER Tab PO SCH (10:38)
--- NOTE | 2018-08-17 12:04 | CP.PCM.PN ---
Subjective - Date & Time of Evaluation Date of Evaluation: 08/17/18 Time of Evaluation: 12:01 - Subjective Subjective: Patient complaints of chest pain and epigastric pain associated with nausea. Objective - Vital Signs/Intake and Output Vital Signs (last 24 hours): Temp Pulse Resp BP Pulse Ox 97.8 F 79 20 130/77 99 08/17/18 08:11 08/17/18 08:11 08/17/18 08:11 08/17/18 08:11 08/17/18 08:11 - Medications Medications: Current Medications Acetaminophen (Tylenol 325mg Tab) 650 mg PO Q4 PRN PRN Reason: Pain, Mild (1-3) Last Admin: 08/13/18 22:07 Dose: 650 mg Clopidogrel Bisulfate (Plavix) 75 mg PO DAILY [facility] Last Admin: 08/17/18 10:38 Dose: 75 mg Heparin Sodium (Porcine) (Heparin) 5,000 units SC Q12 [facility] Last Admin: 08/17/18 10:38 Dose: 5,000 units Lorazepam (Ativan) 0.5 mg PO HS PRN PRN Reason: Sleep Last Admin: 08/16/18 23:01 Dose: 0.5 mg Ondansetron HCl (Zofran Inj) 4 mg IVP ONCE PRN PRN Reason: Nausea/Vomiting Potassium Chloride (K-Dur 20 Meq Er Tab) 20 meq PO DAILY [facility] Last Admin: 08/17/18 10:38 Dose: 20 meq Ranitidine HCl (Zantac Soln 5ml) 150 mg PO BID [facility] Last Admin: 08/17/18 10:36 Dose: 150 mg Rosuvastatin Calcium (Crestor) 10 mg PO HS [facility] Last Admin: 08/16/18 23:03 Dose: Not Given Spironolactone (Aldactone) 25 mg PO BID [facility] Last Admin: 08/17/18 10:38 Dose: 25 mg - Labs Labs: 08/15/18 11:31 08/16/18 08:27 - Constitutional Appears: Well, Non-toxic, No Acute Distress - Head Exam Head Exam: ATRAUMATIC, NORMAL INSPECTION, NORMOCEPHALIC - Eye Exam Eye Exam: EOMI, Normal appearance, PERRL - Neck Exam Neck Exam: Full ROM, Normal Inspection - Respiratory Exam Respiratory Exam: Clear to Ausculation Bilateral, NORMAL BREATHING PATTERN - Cardiovascular Exam Cardiovascular Exam: REGULAR RHYTHM, +S1, +S2 - GI/Abdominal Exam GI & Abdominal Exam: Soft, Normal Bowel Sounds - Rectal Exam Rectal Exam: Deferred - Extremities Exam Extremities Exam: Full ROM, Normal Capillary Refill, Normal Inspection - Neurological Exam Neurological Exam: Alert, Awake, CN II-XII Intact, Oriented x3 Assessment and Plan (1) Epigastric pain Assessment & Plan: CBC Diff. CMP. Amylase. Lipase. US Abdomen. GI consult. PPI. Status: Acute (2) Chest pain Assessment & Plan: Cardiac Enzymes x 3. ECG. Kitchen Assistant notified. Continue same treatment. Status: Resolved (3) Hypokalemia Status: Resolved (4) HTN (hypertension) Status: Chronic (5) Cerebellar infarct Status: Acute (6) Gastritis Status: Acute
--- NOTE | 2018-08-17 16:52 | US ---
HISTORY: Abdominal pain COMPARISON: None available. TECHNIQUE: Sonographic evaluation of the abdomen. FINDINGS: LIVER: Measures 13.2 cm in sagittal dimension. Echogenic liver may be seen in setting of hepatic parenchymal disease or fatty infiltration. No focal hepatic mass identified. The main portal vein appears patent with normal directional flow. No intrahepatic bile duct dilatation. GALLBLADDER: Cholecystectomy. COMMON BILE DUCT: Measures 9 mm. PANCREAS: Not well visualized. RIGHT KIDNEY: Measures 10.7 x 4.8 x 4.9 cm. 1 cm right upper pole cyst and 1.5 cm midpole cyst. No obstructing calculus or hydronephrosis identified. LEFT KIDNEY: Measures 10.9 x 5.3 x 4.7 cm. No hydronephrosis or obstructing calculus identified. 2.2 cm and 1.0 cm in the left lower pole cyst. The no obstructing calculus or hydronephrosis identified. SPLEEN: Measures approximately 6.2 cm. AORTA: Limited views appear unremarkable. IVC: Limited views appear unremarkable. OTHER FINDINGS: Aneurysmal dilatation of the limited visualized abdominal aorta measuring maximally 2.2 cm. IMPRESSION: Bilateral renal cysts. Echogenic liver may be seen in setting of hepatic parenchymal disease or fatty infiltration. Aneurysmal dilatation of the limited visualized abdominal aorta measuring maximally 2.2 cm.
--- NOTE | 2018-08-17 16:55 | CP.PCM.PN ---
Subjective - Date & Time of Evaluation Date of Evaluation: 08/17/18 Time of Evaluation: 16:40 - Subjective Subjective: See consult note Objective - Vital Signs/Intake and Output Vital Signs (last 24 hours): Temp Pulse Resp BP Pulse Ox 97.8 F 95 H 20 108/61 99 08/17/18 08:11 08/17/18 10:02 08/17/18 10:02 08/17/18 10:02 08/17/18 10:02 - Medications Medications: Current Medications Acetaminophen (Tylenol 325mg Tab) 650 mg PO Q4 PRN PRN Reason: Pain, Mild (1-3) Last Admin: 08/13/18 22:07 Dose: 650 mg Clopidogrel Bisulfate (Plavix) 75 mg PO DAILY [facility] Last Admin: 08/17/18 10:38 Dose: 75 mg Lorazepam (Ativan) 0.5 mg PO HS PRN PRN Reason: Sleep Last Admin: 08/16/18 23:01 Dose: 0.5 mg Ondansetron HCl (Zofran Inj) 4 mg IVP ONCE PRN PRN Reason: Nausea/Vomiting Potassium Chloride (K-Dur 20 Meq Er Tab) 20 meq PO DAILY [facility] Last Admin: 08/17/18 10:38 Dose: 20 meq Ranitidine HCl (Zantac Soln 5ml) 150 mg PO BID [facility] Last Admin: 08/17/18 10:36 Dose: 150 mg Rosuvastatin Calcium (Crestor) 10 mg PO HS [facility] Last Admin: 08/16/18 23:03 Dose: Not Given Spironolactone (Aldactone) 25 mg PO BID [facility] Last Admin: 08/17/18 10:38 Dose: 25 mg - Labs Labs: 08/15/18 11:31 08/16/18 08:27
[2018-08-17 17:01] VITALS: O2SAT 98
[2018-08-17 17:03] LABS: BASO % 0.4 % (0.0-2.0); EOS # 0.2 K/uL (0.0-0.7); HEMOGLOBIN 11.1 g/dL (11.0-16.0); LYMPH # 1.4 K/uL (1.0-4.3); LYMPH % 20.7 % (20.0-40.0); MEAN CORPUSCULAR HEMOGLOBIN 31.8 pg (27.0-31.0); MEAN CORPUSCULAR HGB CONC 34.2 g/dL (33.0-37.0); MEAN PLATELET VOLUME 8.5 fL (7.2-11.7); MONO # 0.4 K/uL (0.0-0.8); MONO % 6.4 % (0.0-10.0); NEUT # 4.6 K/uL (1.8-7.0); NEUT % 69.5 % (50.0-75.0); RBC 3.48 Mil/uL (3.80-5.20); RED CELL DISTRIBUTION WIDTH 14.6 % (11.5-14.5); WHITE BLOOD COUNT 6.6 K/uL (4.8-10.8)
--- NOTE | 2018-08-17 17:06 | CP.PCM.CON ---
History of Present Illness - History of Present Illness History of Present Illness: Today I was asked to see the pt for GI consult. I came in now to see the patient and she refused to see me. I brought the nurse in the room and other staff memebers, and the pt then agreed to see me. The staff stayed in the room for the interview and exam. She reports having GI symptoms for " a while" and had EGD and colonsocopy 1 month ago at [facility]- she does not know name of doctor., She reports atypical Cp- sharp and burning, on and off. She reports occ severe GErflux. SHe reports epig pain on and off. She reports a 10 lb wt los over 3 months. She denies RB, melena. She was admitted a few days ago to for symptoms of weakness, sizziness, nausea, ataxia. Found to have cerebellar infarct and Neurology was called. She reports being on multiple Gi meds. She reports having abdomen and pelvic CT that were neg. Review of Systems - Constitutional Constitutional: Anorexia, Fatigue, Malaise, Weight Loss - EENT Eyes: absent: Photophobia Nose/Mouth/Throat: absent: Throat Swelling - Cardiovascular Cardiovascular: Chest Pain - Respiratory Respiratory: absent: Cough, Hemoptysis, Wheezing - Gastrointestinal Gastrointestinal: Abdominal Pain, Heartburn, Nausea. absent: Diarrhea, Dysphagia, Hematemesis, Hematochezia, Loose Stools, Melena - Genitourinary Genitourinary: absent: Flank Pain, Hematuria - Musculoskeletal Musculoskeletal: absent: Muscle Cramps - Integumentary Integumentary: absent: Jaundice - Neurological Neurological: absent: Convulsions Past Patient History - Infectious Disease Hx of Infectious Diseases: None - Past Medical History & Family History Past Medical History?: Yes - Past Social History Smoking Status: Never Smoked - CARDIAC Hx Cardiac Disorders: Yes Hx Hypertension: Yes - PULMONARY Hx Respiratory Disorders: No - NEUROLOGICAL Hx Neurological Disorder: No - HEENT Hx HEENT Problems: No - RENAL Hx Chronic Kidney Disease: No - ENDOCRINE/METABOLIC Hx Endocrine Disorders: No - HEMATOLOGICAL/ONCOLOGICAL Hx Blood Disorders: No - INTEGUMENTARY Hx Dermatological Problems: No - MUSCULOSKELETAL/RHEUMATOLOGICAL Hx Musculoskeletal Disorders: No Hx Falls: No - GASTROINTESTINAL Hx Gastrointestinal Disorders: No - GENITOURINARY/GYNECOLOGICAL Hx Genitourinary Disorders: No - PSYCHIATRIC Hx Psychophysiologic Disorder: No Hx Substance Use: No - SURGICAL HISTORY Hx Surgeries: Yes Hx Appendectomy: Yes Other/Comment: [facility] endo repair 2014 - ANESTHESIA Hx Anesthesia: Yes Hx Anesthesia Reactions: No Hx Malignant Hyperthermia: No Has any member of the family had a problem w/ anesthesia?: No Meds Allergies/Adverse Reactions: Allergies Allergy/AdvReac Type Severity Reaction Status Date / Time iodine Allergy Verified 09/09/16 21:00 Sulfa (Sulfonamide Allergy Verified 09/09/16 21:00 Antibiotics) trimethoprim Allergy Verified 09/09/16 21:00 SEAFOOD Allergy Uncoded 09/09/16 21:00 - Medications Medications: Current Medications Acetaminophen (Tylenol 325mg Tab) 650 mg PO Q4 PRN PRN Reason: Pain, Mild (1-3) Last Admin: 08/13/18 22:07 Dose: 650 mg Clopidogrel Bisulfate (Plavix) 75 mg PO DAILY [facility] Last Admin: 08/17/18 10:38 Dose: 75 mg Lorazepam (Ativan) 0.5 mg PO HS PRN PRN Reason: Sleep Last Admin: 08/16/18 23:01 Dose: 0.5 mg Ondansetron HCl (Zofran Inj) 4 mg IVP ONCE PRN PRN Reason: Nausea/Vomiting Potassium Chloride (K-Dur 20 Meq Er Tab) 20 meq PO DAILY [facility] Last Admin: 08/17/18 10:38 Dose: 20 meq Ranitidine HCl (Zantac Soln 5ml) 150 mg PO BID [facility] Last Admin: 08/17/18 10:36 Dose: 150 mg Rosuvastatin Calcium (Crestor) 10 mg PO HS [facility] Last Admin: 08/16/18 23:03 Dose: Not Given Spironolactone (Aldactone) 25 mg PO BID [facility] Last Admin: 08/17/18 10:38 Dose: 25 mg Physical Exam - Constitutional Appears: Well - Respiratory Exam Respiratory Exam: Clear to Auscultation Bilateral - Cardiovascular Exam Cardiovascular Exam: RRR - GI/Abdominal Exam GI & Abdominal Exam: Normal Bowel Sounds, Soft. absent: Distended, Guarding, Mass, Rebound, Tenderness - Extremities Exam Extremities exam: Negative for: calf tenderness, pedal edema - Neurological Exam Neurological exam: Alert, Oriented x3 - Psychiatric Exam Psychiatric exam: Agitated, Anxious Results - Vital Signs Recent Vital Signs: Last Vital Signs Temp 97.9 F 10/14/18 16:00 Pulse 85 08/17/18 16:00 Resp 20 08/17/18 16:00 BP 126/63 08/17/18 16:00 Pulse Ox 98 08/17/18 16:00 - Labs Result Diagrams: 08/15/18 11:31 08/16/18 08:27 Labs: Laboratory Results - last 24 hr 08/17/18 10:50 Troponin I < 0.0120 Assessment & Plan (1) Esophageal reflux Assessment and Plan: With atypical CP,. Card w/u has been neg. Consider GERD, esophagitis Status: Acute (2) Cerebellar infarct Status: Acute (3) Epigastric pain Assessment and Plan: gastritis Status: Acute (4) Poor appetite Status: Acute (5) Chest pain Assessment and Plan: cardiac w/u is neg. Consider GERD, esophagitis, esoph spasm., anxiety. Pt had recent EGD- she refuses repeat EGD. CUrrently on zantac. Try carafate then PPI. She is on plavix. Status: Resolved (6) Hypokalemia Status: Resolved (7) HTN (hypertension) Status: Chronic Priority: Medium (8) Weight loss Status: Acute (9) AAA (abdominal aortic aneurysm) Status: Acute
[2018-08-17 17:21] LABS: ALB/GLOB RATIO 1.2 (1.0-2.1); ALBUMIN 3.3 g/dL (3.5-5.0); ALT/SGPT 51 U/L (9-52); AMYLASE 66 U/L (30-110); AST/SGOT 54 U/L (14-36); BLOOD UREA NITROGEN 19 mg/dL (7-17); CALCIUM 9.1 mg/dl (8.6-10.4); GFR NON-AFRICAN AMERICAN 53; LIPASE 102 U/L (23-300)
[2018-08-17] MEDS: Sucralfate 1 gm/10 ml Oral Susp UD PO SCH (18:27)
[2018-08-18 08:48] VITALS: PULSE 88
[2018-08-18 09:07] VITALS: BP 120/60; TEMP 98
[2018-08-18] MEDS: raNITIdine HCl 150 mg/10 ml Soln Cup PO SCH (10:43)
[2018-08-18] MEDS: Sucralfate 1 gm/10 ml Oral Susp UD PO SCH ×2 (10:43→13:57)
[2018-08-18] MEDS: Potassium Chloride 20 mEq ER Tab PO SCH (10:43)
--- NOTE | 2018-08-18 13:38 | CP.PCM.PN ---
Subjective - Date & Time of Evaluation Date of Evaluation: 08/18/18 Time of Evaluation: 13:35 - Subjective Subjective: f/u abdominal pain Very anxious. Constant abdominal and chest pain, nausea, headache Does not know what was found on EGD recently on [place] except "inflammation" Objective - Vital Signs/Intake and Output Vital Signs (last 24 hours): Temp Pulse Resp BP Pulse Ox 98 F 88 20 120/60 98 08/18/18 08:00 08/18/18 08:40 08/18/18 08:00 08/18/18 08:00 08/18/18 08:00 - Medications Medications: Current Medications Acetaminophen (Tylenol 325mg Tab) 650 mg PO Q4 PRN PRN Reason: Pain, Mild (1-3) Last Admin: 08/13/18 22:07 Dose: 650 mg Clopidogrel Bisulfate (Plavix) 75 mg PO DAILY [facility] Last Admin: 08/18/18 10:43 Dose: 75 mg Lorazepam (Ativan) 0.5 mg PO HS PRN PRN Reason: Sleep Last Admin: 08/17/18 21:57 Dose: 0.5 mg Ondansetron HCl (Zofran Inj) 4 mg IVP ONCE PRN PRN Reason: Nausea/Vomiting Potassium Chloride (K-Dur 20 Meq Er Tab) 20 meq PO DAILY [facility] Last Admin: 08/18/18 10:43 Dose: 20 meq Ranitidine HCl (Zantac Soln 5ml) 150 mg PO BID [facility] Last Admin: 08/18/18 10:43 Dose: 150 mg Rosuvastatin Calcium (Crestor) 10 mg PO HS [facility] Last Admin: 08/17/18 21:57 Dose: 10 mg Spironolactone (Aldactone) 25 mg PO BID [facility] Last Admin: 08/18/18 10:45 Dose: 25 mg Sucralfate (Carafate Oral Susp) 1 gm PO TID [facility] Last Admin: 08/18/18 10:43 Dose: 1 gm - Labs Labs: 08/17/18 16:52 08/17/18 16:52 - Constitutional Appears: No Acute Distress, Agitated - Head Exam Head Exam: NORMOCEPHALIC - Eye Exam Eye Exam: absent: Scleral icterus - Respiratory Exam Respiratory Exam: NORMAL BREATHING PATTERN - Cardiovascular Exam Cardiovascular Exam: REGULAR RHYTHM Additional comments: no sternal tenderness - GI/Abdominal Exam GI & Abdominal Exam: Soft. absent: Distended, Guarding, Tenderness, Rebound Assessment and Plan (1) Epigastric pain Assessment & Plan: Most likely functional pain, anxiety. Workup negative Would try Librax Get prior workup from [place] Status: Acute (2) Chest pain Assessment & Plan: Most likely functional but will treat empirically for GERD Status: Resolved
--- NOTE | 2018-08-18 15:13 | CP.PCM.PN ---
Subjective - Date & Time of Evaluation Date of Evaluation: 08/18/18 Time of Evaluation: 15:13 - Subjective Subjective: PATIENT SEEN AND EXAMINED AT THE BEDSIDE Objective - Vital Signs/Intake and Output Vital Signs (last 24 hours): Temp Pulse Resp BP Pulse Ox 98 F 88 20 120/60 98 08/18/18 08:00 08/18/18 08:40 08/18/18 08:00 08/18/18 08:00 08/18/18 08:00 - Medications Medications: Current Medications Acetaminophen (Tylenol 325mg Tab) 650 mg PO Q4 PRN PRN Reason: Pain, Mild (1-3) Last Admin: 08/13/18 22:07 Dose: 650 mg Clopidogrel Bisulfate (Plavix) 75 mg PO DAILY [facility] Last Admin: 08/18/18 10:43 Dose: 75 mg Dicyclomine HCl (Bentyl) 10 mg PO QID [facility] Last Admin: 08/18/18 14:44 Dose: 10 mg Lorazepam (Ativan) 0.5 mg PO HS PRN PRN Reason: Sleep Last Admin: 08/17/18 21:57 Dose: 0.5 mg Ondansetron HCl (Zofran Inj) 4 mg IVP ONCE PRN PRN Reason: Nausea/Vomiting Ranitidine HCl (Zantac Soln 5ml) 150 mg PO BID [facility] Last Admin: 08/18/18 10:43 Dose: 150 mg Rosuvastatin Calcium (Crestor) 10 mg PO HS [facility] Last Admin: 08/17/18 21:57 Dose: 10 mg Spironolactone (Aldactone) 25 mg PO BID [facility] Last Admin: 08/18/18 10:45 Dose: 25 mg Sucralfate (Carafate Oral Susp) 1 gm PO TID [facility] Last Admin: 08/18/18 13:57 Dose: 1 gm - Labs Labs: 08/17/18 16:52 08/17/18 16:52 Assessment and Plan - Assessment and Plan (Free Text) Assessment: PL[facility] THE [facility]ICE DR ROLDAN AT [facility] ----CALL FOR ADMITTING DOCTOR FOLLOW UP WITH DR CASTRO OT HIS OFFICE ----CALL FOR APPOINTMENT FOLLOW UP WITH DR CHANEL AT HIS OFFICE ----CALL FOR APPOINTMENT CONTINUE HOME MEDICATION NEW PRESCRIPTION GIVEN PLAVIX 75 MG PO DAILY CRESTOR 10 MG PO DAILY BENTYL 10 MG PO QID ALDACTONE 25 MG PO BID CARAFATE 1 TID PO ACTIVITY TOLERATED AND FACILITY PROTOCOL
--- NOTE | 2018-08-18 18:12 | CP.PCM.PN ---
Subjective - Date & Time of Evaluation Date of Evaluation: 08/18/18 Time of Evaluation: 12:00 - Subjective Subjective: SEEN ON RENAL F/U STILL WITH EPIGASTRIC PAIN .. MAY BE SIDE EFFECT OF K PO WILL D/C K SUPPLEMENT K IS NOW NORMAL ALL PREVIOUS EMR REVIEWED .. PT WAS SEEN AND EXAMINED Objective - Vital Signs/Intake and Output Vital Signs (last 24 hours): Temp Pulse Resp BP Pulse Ox 98 F 88 20 120/60 98 08/18/18 08:00 08/18/18 08:40 08/18/18 08:00 08/18/18 08:00 08/18/18 08:00 Intake and Output: 08/18/18 08/18/18 06:59 18:59 Intake Total 300 Balance 300 - Labs Labs: 08/17/18 16:52 08/17/18 16:52 Assessment and Plan - Assessment and Plan (Free Text) Assessment: HYPOKALEMIA WITH MET ALKOLOSIS AND HYPERTENSION .. 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
--- NOTE | 2018-08-18 22:52 | CARD ---
APPROVED REPORT Date of service: 08/17/2018 EKG Measurement Heart [id number] QTc0 <Conclusion> No QRS complexes found, no ECG analysis possible
--- NOTE | 2018-08-18 22:52 | CARD ---
APPROVED REPORT Date of service: 08/17/2018 EKG Measurement Heart [id number] <Conclusion> Normal sinus rhythm Left anterior fascicular block Cannot rule out Inferior infarct (masked by fascicular block?), age undetermined Abnormal ECG
--- NOTE | 2018-08-18 23:56 | CP.PCM.DIS ---
Provider - Provider Date of Admission: 08/14/18 17:25 Attending physician: Umberto Castro MD Time Spent in preparation of Discharge (in minutes): 30 Diagnosis - Discharge Diagnosis (1) Epigastric pain Status: Resolved Priority: High (2) Chest pain Status: Resolved (3) Hypokalemia Status: Resolved (4) HTN (hypertension) Status: Chronic Priority: Medium (5) Cerebellar infarct Status: Acute (6) Gastritis Status: Acute Hospital Course - Lab Results Lab Results: Micro Results 08/11/18 18:18 Urine Urine Culture - Final <10,000 CFU/ML. MULTIPLE SPECIES. PROBABLE CONTAMINATION. Most Recent Lab Values WBC 6.6 K/uL (4.8-10.8) 08/17/18 16:52 RBC 3.48 Mil/uL (3.80-5.20) L 08/17/18 16:52 Hgb 11.1 g/dL (11.0-16.0) 08/17/18 16:52 Hct 32.4 % (34.0-47.0) L 08/17/18 16:52 MCV 93.0 fL (81.0-99.0) 08/17/18 16:52 MCH 31.8 pg (27.0-31.0) H 08/17/18 16:52 MCHC 34.2 g/dL (33.0-37.0) 08/17/18 16:52 RDW 14.6 % (11.5-14.5) H 08/17/18 16:52 Plt Count 324 K/uL (130-400) 08/17/18 16:52 MPV 8.5 fL (7.2-11.7) 08/17/18 16:52 Neut % (Auto) 69.5 % (50.0-75.0) 08/17/18 16:52 Lymph % (Auto) 20.7 % (20.0-40.0) 08/17/18 16:52 [place] % (Auto) 6.4 % (0.0-10.0) 08/17/18 16:52 Eos % (Auto) 3.0 % (0.0-4.0) 08/17/18 16:52 Baso % (Auto) 0.4 % (0.0-2.0) 08/17/18 16:52 Neut # (Auto) 4.6 K/uL (1.8-7.0) 08/17/18 16:52 Lymph # (Auto) 1.4 K/uL (1.0-4.3) 08/17/18 16:52 [place] # (Auto) 0.4 K/uL (0.0-0.8) 08/17/18 16:52 Eos # (Auto) 0.2 K/uL (0.0-0.7) 08/17/18 16:52 Baso # (Auto) 0.0 K/uL (0.0-0.2) 08/17/18 16:52 pO2 24 mm/Hg (30-55) L 08/11/18 16:09 VBG pH 7.53 (7.32-7.43) H 08/11/18 16:09 VBG pCO2 42 mmHg (40-60) 08/11/18 16:09 VBG HCO3 32.5 mmol/L 08/11/18 16:09 VBG Total CO2 36.4 mmol/L (22-28) H 08/11/18 16:09 VBG O2 Sat (Calc) 58.1 % (40-65) 08/11/18 16:09 VBG Base Excess 11.2 mmol/L (0.0-2.0) H 08/11/18 16:09 VBG Potassium 2.4 mmol/L (3.6-5.2) L* 08/11/18 16:09 Sodium 141.0 mmol/l (132-148) 08/11/18 16:09 Chloride 103.0 mmol/L (98-107) 08/11/18 16:09 Glucose 94 mg/dl (65-105) 08/11/18 16:09 Lactate 1.8 mmol/L (0.7-2.1) 08/11/18 16:09 Crit Value Called To phan Ernst md 08/11/18 16:09 Crit Value Called By Fransisca 08/11/18 16:09 Crit Value Read Back Y 08/11/18 16:09 Blood Gas Notified Time 1613 08/11/18 16:09 Sodium 136 mmol/L (132-148) 08/17/18 16:52 Potassium 4.7 mmol/L (3.6-5.2) 08/17/18 16:52 Chloride 98 mmol/L (98-107) 08/17/18 16:52 Carbon Dioxide 29 mmol/L (22-30) 08/17/18 16:52 Anion Gap 14 (10-20) 08/17/18 16:52 BUN 19 mg/dL (7-17) H 08/17/18 16:52 Creatinine 1.0 mg/dL (0.7-1.2) 08/17/18 16:52 Est GFR ( Amer) > 60 08/17/18 16:52 Est GFR (Non-Af Amer) 53 08/17/18 16:52 Random Glucose 164 mg/dL (65-105) H 08/17/18 16:52 Calcium 9.1 mg/dl (8.6-10.4) 08/17/18 16:52 Magnesium 2.0 mg/dL (1.6-2.3) 08/12/18 19:13 Total Bilirubin 0.3 mg/dL (0.2-1.3) 08/17/18 16:52 AST 54 U/L (14-36) H D 08/17/18 16:52 ALT 51 U/L (9-52) 08/17/18 16:52 Alkaline Phosphatase 108 U/L (38-126) 08/17/18 16:52 Total Creatine Kinase 22 U/L (30-135) L 08/14/18 19:19 CK-MB (Mass) 0.31 ng/mL (0.0-3.38) 08/14/18 19:19 Troponin I < 0.0120 ng/mL (0.00-0.120) 08/17/18 10:50 Total Protein 6.1 g/dL (6.3-8.3) L 08/17/18 16:52 Albumin 3.3 g/dL (3.5-5.0) L 08/17/18 16:52 Globulin 2.8 gm/dL (2.2-3.9) 08/17/18 16:52 Albumin/Globulin Ratio 1.2 (1.0-2.1) 08/17/18 16:52 Triglycerides 81 mg/dL (0-149) 08/13/18 09:59 Cholesterol 119 mg/dL (0-199) 08/13/18 09:59 LDL Cholesterol Direct 58 mg/dL (0-129) 08/13/18 09:59 HDL Cholesterol 37 mg/dL (30-70) 08/13/18 09:59 Amylase 66 U/L (30-110) 08/17/18 16:52 Lipase 102 U/L (23-300) 08/17/18 16:52 Vitamin B12 851 pg/mL (239-931) 08/13/18 09:59 Folate > 20.0 ng/mL 08/13/18 09:59 Homocysteine 8.6 umol/L (4.7-12.6) 08/13/18 09:59 Free T4 1.43 ng/dL (0.78-2.19) 08/11/18 17:17 TSH 3rd Generation 2.87 mIU/L (0.46-4.68) 08/17/18 16:52 Prolactin 21.4 ng/mL (3.0-18.9) H 08/13/18 09:59 Venous Blood Potassium 2.4 mmol/L (3.6-5.2) L* 08/11/18 16:09 Urine Color Straw (YELLOW) 08/11/18 18:18 Urine Clarity Clear (Clear) 08/11/18 18:18 Urine pH 7.0 (5.0-8.0) 08/11/18 18:18 Ur Specific [place] 1.003 (1.003-1.030) 08/11/18 18:18 Urine Protein Negative mg/dL (NEGATIVE) 08/11/18 18:18 Urine Glucose (UA) Normal mg/dL (Normal) 08/11/18 18:18 Urine Ketones Trace mg/dL (NEGATIVE) 08/11/18 18:18 Urine Blood 1+ (NEGATIVE) H 08/11/18 18:18 Urine Nitrate Negative (NEGATIVE) 08/11/18 18:18 Urine Bilirubin Negative (NEGATIVE) 08/11/18 18:18 Urine Urobilinogen Normal mg/dL (0.2-1.0) 08/11/18 18:18 Ur Leukocyte Esterase Neg Debra/uL (Negative) 08/11/18 18:18 Urine WBC (Auto) 3 /hpf (0-5) 08/11/18 18:18 Urine RBC (Auto) 4 /hpf (0-3) H 08/11/18 18:18 Ur Squamous Epith Cells < 1 /hpf (0-5) 08/11/18 18:18 Ur Random Sodium 108 mmol/L 08/12/18 17:05 Ur Random Potassium 34.6 mmol/L 08/12/18 17:05 Urine Chloride 122 mmol/L (32-290) 08/12/18 17:05 - Hospital Course Hospital Course: 83 years old female with PMH significant for HTN who presents to the Hospital complaining of generalized weakness. Initial evaluation showed Hypokalemia. Patient admitted for further evaluation and treatment. Patient started on IV Potassium replacement, IV Fluids and Nephrology consult requested, patient started on Spironolactone and Amlodipine discontinued. 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 Neurology evaluation requested, patient started on Plavix. Patient complained of chest pain but cardiac enzymes were normal. Artificial Insemination Technician recommended Stress test as an outpatient. The day prior to discharge patient complained of Epigastric pain, patient refused Upper Endoscopy evaluation. Patient condition improved and she was transferred to Subacute Rehab. Discharge Exam - Head Exam Head Exam: ATRAUMATIC, NORMAL INSPECTION, NORMOCEPHALIC - Eye Exam Eye Exam: EOMI, Normal appearance, PERRL - Neck Exam Neck exam: Full Rom, Normal Inspection - Respiratory Exam Respiratory Exam: Clear to PA & Lateral, NORMAL BREATHING PATTERN, UNREMARKABLE - Cardiovascular Exam Cardiovascular Exam: REGULAR RHYTHM, +S1, +S2 - GI/Abdominal Exam GI & Abdominal Exam: Normal Bowel Sounds, Unremarkable - Extremities Exam Extremities exam: full ROM, normal inspection - Neurological Exam Neurological exam: Alert, CN II-XII Intact, Oriented x3 Discharge Plan - Discharge Medications Prescriptions: Spironolactone [Aldactone] 25 mg PO BID 30 Days tab Dicyclomine [Bentyl] 10 mg PO QID 30 Days cap Sucralfate [Carafate Oral Susp] 1 gm PO TID 30 Days udc Rosuvastatin Calcium [Crestor] 10 mg PO HS 30 Days tab Clopidogrel [Plavix] 75 mg PO DAILY 30 Days tab - Follow Up Plan Condition: STABLE Disposition: HOME/ ROUTINE Instructions: Stroke (DC), Weakness (ED), Hypertension (DC), Hypertension (GEN), Hypokalemia (DC), Hypokalemia (GEN), Weakness (GEN), Acute Abdominal Pain (DC), Acute Abdominal Pain (GEN), Weight Management (DC), Weight Management (GEN) Additional Instructions: PLACE UNDER THE SERVICE DR ROLDAN AT [facility] ----CALL FOR ADMITTING DOCTOR FOLLOW UP WITH DR CASTRO OT HIS OFFICE ----CALL FOR APPOINTMENT FOLLOW UP WITH DR CHANEL AT HIS OFFICE ----CALL FOR APPOINTMENT CONTINUE HOME MEDICATION NEW PRESCRIPTION GIVEN PLAVIX 75 MG PO DAILY CRESTOR 10 MG PO DAILY BENTYL 10 MG PO QID ALDACTONE 25 MG PO BID CARAFATE 1 TID PO ACTIVITY TOLERATED AND FACILITY PROTOCOL Referrals: Umberto Castro MD [Staff Provider] - Sommer Calix MD [Staff Provider] - Davon Siegel MD [Staff Provider] - Rigoberto Chanel MD [Staff Provider] - Lynda Guillen MD [Staff Provider] -
--- NOTE | 2018-08-19 14:14 | EEG ---
DATE: 08/15/2018 This is a 16-channel electroencephalogram of awake and drowsy adult. With the study, photic stimulation was performed. Hyperventilation was not performed. The resting electroencephalogram continues to have lower than 20 microvolt diffuse 6 to 7 Hz theta activity superimposed with a 2 to 3 Hz delta activity seen at the posterior dominant rhythm. This is followed with 2 to 3 Hz delta activity seen. Some movement and loose lead artifact is altered intermittently. The photic stimulation did not evoke any response noted at 2 to 20 Hz. IMPRESSION: This is abnormal electroencephalogram because of persistent slowing throughout the record suggestive of bilateral cerebral dysfunction. This is probably secondary to metabolic vascular or degenerative process. Please correlated the finding with neurological and radiological studies. Davon Siegel MD
--- NOTE | 2018-08-27 21:30 | PQF ---
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 REVIEWER QUERY TEXT: Stroke Specificity Stroke is documented in the Medical Record. Please specify the type, the vessel involved and location Such as: Vessel: -- Cerebral artery (please specify as anterior, cerebellar, middle, posterior) -- Precerebral artery (basilar, carotid, vertebra) -- Other, please specify Type: -- Cerebral venous thrombosis -- Embolism -- Hemorrhage (non-traumatic) -- Occlusion or stenosis -- Other, please specify Location of non-traumatic hemorrhage such as: -- Intracerebral -- Intracranial -- Subarachnoid -- Subdural -- Other, please specify The patient's Clinical Indicators include: MRI negative for acute infarct. discharge summary states cerebral infarct. it seems there is conflict ing documentation. Please clarify if patient had a NEW CVA. Query created by: Reena Perez on 08/19/2018 4:21 PM Electronically signed by: Umberto Alvarado MD 08/27/2018 9:26 PM
== END 2018-08-18 16:28 | DRG 641 ==
LOC: C.ER 13:05 → C.9E 18:08 → C.5S 19:13 → OBSVTOIN 08-14 17:25
PROVIDERS: ADMIT Internal Medicine; ATTEND Internal Medicine
DX: E87.6 Hypokalemia (principal); I10 Essential (primary) hypertension; K21.0 Gastro-esophageal reflux disease with esophagitis; E87.3 Alkalosis; G93.89 Other specified disorders of brain; E26.09 Other primary hyperaldosteronism; Z86.73 Personal history of transient ischemic attack (TIA), and cerebral infarction without residual deficits; F41.9 Anxiety disorder, unspecified; I71.4 Abdominal aortic aneurysm, without rupture; K29.70 Gastritis, unspecified, without bleeding; Z79.02 Long term (current) use of antithrombotics/antiplatelets; R07.9 Chest pain, unspecified

== ENCOUNTER 2018-10-01 09:31 | Inpatient (IN) | payer MEDICARE ==
[2018-10-01 09:32] VITALS: BMI 21.2
[2018-10-01 11:16] LABS: BASO % 0.4 % (0.0-2.0); EOS % 0.5 % (0.0-4.0); HEMOGLOBIN 11.6 g/dL (11.0-16.0); LYMPH # 0.8 K/uL (1.0-4.3); LYMPH % 11.6 % (20.0-40.0); MEAN CELL VOLUME 93.8 fL (81.0-99.0); MEAN CORPUSCULAR HEMOGLOBIN 32.3 pg (27.0-31.0); MEAN CORPUSCULAR HGB CONC 34.4 g/dL (33.0-37.0); MEAN PLATELET VOLUME 8.4 fL (7.2-11.7); MONO # 0.4 K/uL (0.0-0.8); MONO % 5.5 % (0.0-10.0); NEUT # 5.5 K/uL (1.8-7.0); RBC 3.6 Mil/uL (3.80-5.20); RED CELL DISTRIBUTION WIDTH 15.1 % (11.5-14.5); WHITE BLOOD COUNT 6.8 K/uL (4.8-10.8)
[2018-10-01 11:43] LABS: B-TYPE NATRIURETIC PEPTIDE 384 pg/mL (0-900)
[2018-10-01 11:50] LABS: BLOOD UREA NITROGEN 16 mg/dL (7-17); CALCIUM 9.4 mg/dl (8.6-10.4); GFR NON-AFRICAN AMERICAN > 60; LIPASE 54 U/L (23-300)
[2018-10-01 12:03] LABS: ALB/GLOB RATIO 1.3 (1.0-2.1); ALBUMIN 4.3 g/dL (3.5-5.0); ALT/SGPT 36 U/L (9-52); AST/SGOT 47 U/L (14-36)
[2018-10-01 12:33] LABS: URINE BACTERIA RARE (<OCC); URINE BILIRUBIN NEGATIVE (NEGATIVE); URINE BLOOD NEGATIVE (NEGATIVE); URINE CLARITY Clear (Clear); URINE COLOR Straw (YELLOW); URINE GLUCOSE (UA) NORMAL (Normal); URINE LEUKOCYTE ESTERASE NEG Leu/uL (Negative); URINE PROTEIN NEGATIVE (NEGATIVE); URINE UROBILINOGEN NORMAL mg/dL (0.2-1.0)
--- NOTE | 2018-10-01 13:19 | C.PDOC ---
History Of Present Illness 83 year old female presents to the ED complaining of chest pain and burning abdominal pain. Reports the chest pain started at 06:00 this morning but it feels better now. Denies any shortness of breath, palpitations, cough, fever, chills, nausea, vomiting, diarrhea, or any othery symptoms. Last bowel movement was yesterday. HPI limited because patient is a poor historian. PMD: Dr. Alvarado Time Seen by Provider: 10/01/18 09:47 Chief Complaint (Nursing): Chest Pain History Per: Patient History/Exam Limitations: no limitations Onset/Duration Of Symptoms: Hrs Current Symptoms Are (Timing): Still Present Past Medical History Reviewed: Historical Data, Nursing Documentation, Vital Signs Vital Signs: Last Vital Signs Temp 98 F 10/01/18 09:41 Pulse 77 10/01/18 12:04 Resp 17 10/01/18 12:04 BP 149/63 10/01/18 12:04 Pulse Ox 99 10/01/18 12:04 - Medical History PMH: Diverticulitis, HTN Denies: HIV, Chronic Kidney Disease Surgical History: Appendectomy, Cholecystectomy - [facility] Procedures ANGIOPLASTY OF OTHER NON-CORONARY VESSEL(S) (09/26/14) INJECT/INFUSE NEC (05/03/14) INSEJ [id number] PERIPHERAL NON-CORONARY VES STENT(S) (09/26/14) INSERTION OF ONE VASCULAR STENT (09/26/14) PROCEDURE ON SINGLE VESSEL (09/26/14) Family History: States: No Known Family Hx - Social History Hx Tobacco Use: No Hx Alcohol Use: No Hx Substance Use: No - Immunization History Hx Tetanus Toxoid Vaccination: No Hx Influenza Vaccination: No Hx Pneumococcal Vaccination: No Review Of Systems Constitutional: Negative for: Fever, Chills Cardiovascular: Positive for: Chest Pain. Negative for: Palpitations Respiratory: Negative for: Cough, Shortness of Breath Gastrointestinal: Positive for: Abdominal Pain. Negative for: Nausea, Vomiting Physical Exam - Physical Exam Appears: Non-toxic, No Acute Distress Skin: Warm, Dry, No Rash Head: Normacephalic Eye(s): bilateral: Normal Inspection Nose: Normal Oral Mucosa: Moist Neck: Normal ROM, Supple Chest: Symmetrical Cardiovascular: Rhythm Regular Respiratory: No Rales, No Rhonchi, No Wheezing Gastrointestinal/Abdominal: Soft, Tenderness (RLQ and suprapubic tenderness ), No Distention, No Guarding, No Rebound Back: No CVA Tenderness Extremity: No Pedal Edema, No Deformity, No Swelling Extremity: Bilateral: Atraumatic, Normal Color And Temperature, Normal ROM Neurological/Psych: Oriented x3, Normal Speech Gait: Steady ED Course And Treatment - Laboratory Results Result Diagrams: 10/01/18 11:12 10/01/18 11:12 ECG: Interpreted By Me, Viewed By Me ECG Rhythm: Sinus Rhythm Interpretation Of ECG: nsr 67. left axis deviation. normal intervals. normal axis. no ischemic changes. Rate From EC O2 Sat by Pulse Oximetry: 99 (RA) Pulse Ox Interpretation: Normal - Other Rad CXR X-Ray: Viewed By Me, Read By Radiologist Interpretation: Accession No. : [id number]. Patient Name / ID : LORNA FAM / [id number]. Exam Date : 10/01/2018 12:43:10 ( Approved ). Study Comment : Sex / Age : F / 83Y. Creator : Ag Tripp MD. Dictator : Ag Tripp MD. Area Field Person : Guest Relations Manager : Ag Tripp MD. Approver2 : Report Date : 10/01/2018 14:33:38. My Comment : . Date of service: 10/01/2018. PROCEDURE: CHEST RADIOGRAPH, 1 VIEW. HISTORY: chest pain. COMPARISON: 08/14/2018. FINDINGS: LUNGS: Clear. PLEURA: No pneumothorax or pleural fluid seen. CARDIOVASCULAR: Atherosclerotic calcifications identified primarily aortic arch. No radiographic findings to suggest acute or significant cardiovascular disease. OSSEOUS STRUCTURES: No significant abnormalities. VISUALIZED UPPER ABDOMEN: Normal. OTHER FINDINGS: None. IMPRESSION: No active disease.No significant interval change compared to the prior examination(s). ____ . Concordant results with the preliminary interpretation rendered by the emergency department physicianBIANCA at the conclusion of the procedure. - CT Scan/US CT Abd/Pel Other Rad Studies (CT/US): Read By Radiologist, Radiology Report Reviewed CT/US Interpretation: Accession No. : [id number]. Patient Name / ID : LORNA FAM / [id number]. Exam Date : 10/01/2018 13:30:35 ( Approved ). Study Comment : Sex / Age : F / 83Y. Creator : Laura Fraga. Dictator : Patricia Lyons MD. Area Field Person : Guest Relations Manager : Patricia Lyons MD. Approver2 : Report Date : 10/01/2018 13:43:38. My Comment : . Date of service:10/01/2018. CT chest, abdomen, and pelvis without IV contrast. Indication: chest pain, h/o aortic dissection. Technique: Contiguous axial images of the chest, abdomen, and pelvis without oral or IV contrast. Coronal and Sagittal reformats generated and reviewed. This CT exam was performed using 1 or more of the following dose reduction techniques: Automated exposure control, adjustment of the MAA and/or kV according to patient size, and/or use of iterative reconstruction technique. Radiation dose: Total exam DLP = 462.68 MGy-cm. Comparison: Chest x-ray performed 08/14/18. Findings: Visualized portions of the inferior thyroid gland demonstrates evidence of 8 mm right lower pole hypodense nodule. The unenhanced mediastinal and hilar vascular structures appear grossly unremarkable. The heart appears within normal limits of size. Coronary artery calcifications. Small pericardial recess fluid. Mild bibasilar atelectasis. No focal consolidation. No pleural effusion. No pneumothorax. No suspicious pulmonary nodules measuring greater than 5 mm. Infrarenal abdominal aortic stent terminates at the level of the bifurcation. Thoracic and abdominal aorta appears otherwise unremarkable and within normal limits of caliber with dense atherosclerotic calcifications evident. Cholecystectomy. 13 mm partially exophytic left lower pole renal mass measures approximately 18 HU, higher than expected for simple cyst. Additional too small to characterize renal lesions noted, possibly cysts. Recommend further evaluation with ultrasound. The noncontrast liver, spleen, pancreas, and adrenal glands appear unremarkable. The stomach is nondistended. Lack of oral contrast limits evaluation for bowel pathology. Diverticulosis. Mild adjacent inflammatory stranding and probable wall thickening noted the level the right colon; correlate for mild acute diverticulitis. The bowel loops appear within normal limits of caliber without evidence of intestinal obstruction. There is no definite free air. Uterus is absent consistent with hysterectomy. The urinary bladder appears unremarkable. Degenerative changes. Impression: Please note that absence of IV contrast precludes evaluation for aortic dissection. Infrarenal abdominal aortic stent terminates at the level of the bifurcation. Thoracic and abdominal aorta appears otherwise unremarkable and within normal limits of caliber with dense atherosclerotic calcifications evident. Small fluid in the pericardial recesses. Cholecystectomy. 13 mm partially exophytic left lower pole renal mass measures approximately 18 HU, higher than expected for simple cyst. Additional too small to characterize renal lesions noted, possibly cysts. Recommend further evaluation with ultrasound. Diverticula, mild adjacent inflammatory stranding, and probable wall thickening noted the level the right colon; correlate for mild acute diverticulitis. 8 mm right lower pole hypodense thyroid nodule; suggest further evaluation with thyroid ultrasound. Cholecystectomy. Hysterectomy. Additional findings as above. Medical Decision Making Medical Decision Making: Plan - CT abd/pel - EKG - CXR - Aspirin Disposition Counseled Patient/Family Regarding: Studies Performed, Diagnosis - Disposition Disposition: HOSPITALIZED Disposition Time: 15:24 Condition: STABLE - Clinical Impression Clinical Impression: Diverticulitis, Chest pain, Abdominal pain - Scribe Statement The provider has reviewed the documentation as recorded by the Lesleyibvaleria Gasca All medical record entries made by the Lesleyibe were at my direction and personally dictated by me. I have reviewed the chart and agree that the record accurately reflects my personal performance of the history, physical exam, medical decision making, and the department course for this patient. I have also personally directed, reviewed, and agree with the discharge instructions and disposition.
--- NOTE | 2018-10-01 14:37 | RAD ---
Date of service: 10/01/2018 PROCEDURE: CHEST RADIOGRAPH, 1 VIEW HISTORY: chest pain COMPARISON: 08/14/2018. FINDINGS: LUNGS: Clear. PLEURA: No pneumothorax or pleural fluid seen. CARDIOVASCULAR: Atherosclerotic calcifications identified primarily aortic arch. No radiographic findings to suggest acute or significant cardiovascular disease. OSSEOUS STRUCTURES: No significant abnormalities. VISUALIZED UPPER ABDOMEN: Normal. OTHER FINDINGS: None. IMPRESSION: No active disease.No significant interval change compared to the prior examination(s). Concordant results with the preliminary interpretation rendered by the emergency department physician procedure.
--- NOTE | 2018-10-01 14:46 | CT ---
Date of service:10/01/2018 CT chest, abdomen, and pelvis without IV contrast Indication: chest pain, h/o aortic dissection Technique: Contiguous axial images of the chest, abdomen, and pelvis without oral or IV contrast. Coronal and Sagittal reformats generated and reviewed. This CT exam was performed using 1 or more of the following dose reduction techniques: Automated exposure control, adjustment of the MAA and/or kV according to patient size, and/or use of iterative reconstruction technique. Radiation dose: Total exam DLP = 462.68 MGy-cm. Comparison: Chest x-ray performed 08/14/18 Findings: Visualized portions of the inferior thyroid gland demonstrates evidence of 8 mm right lower pole hypodense nodule. The unenhanced mediastinal and hilar vascular structures appear grossly unremarkable. The heart appears within normal limits of size. Coronary artery calcifications. Small pericardial recess fluid Mild bibasilar atelectasis. No focal consolidation. No pleural effusion. No pneumothorax. No suspicious pulmonary nodules measuring greater than 5 mm. Infrarenal abdominal aortic stent terminates at the level of the bifurcation. Thoracic and abdominal aorta appears otherwise unremarkable and within normal limits of caliber with dense atherosclerotic calcifications evident. Cholecystectomy. 13 mm partially exophytic left lower pole renal mass measures approximately 18 HU, higher than expected for simple cyst. Additional too small to characterize renal lesions noted, possibly cysts. Recommend further evaluation with ultrasound. The noncontrast liver, spleen, pancreas, and adrenal glands appear unremarkable. The stomach is nondistended. Lack of oral contrast limits evaluation for bowel pathology. Diverticulosis. Mild adjacent inflammatory stranding and probable wall thickening noted the level the right colon; correlate for mild acute diverticulitis. The bowel loops appear within normal limits of caliber without evidence of intestinal obstruction. There is no definite free air. Uterus is absent consistent with hysterectomy. The urinary bladder appears unremarkable. Degenerative changes. Impression: Please note that absence of IV contrast precludes evaluation for aortic dissection. Infrarenal abdominal aortic stent terminates at the level of the bifurcation. Thoracic and abdominal aorta appears otherwise unremarkable and within normal limits of caliber with dense atherosclerotic calcifications evident. Small fluid in the pericardial recesses. Cholecystectomy. 13 mm partially exophytic left lower pole renal mass measures approximately 18 HU, higher than expected for simple cyst. Additional too small to characterize renal lesions noted, possibly cysts. Recommend further evaluation with ultrasound. Diverticula, mild adjacent inflammatory stranding, and probable wall thickening noted the level the right colon; correlate for mild acute diverticulitis. 8 mm right lower pole hypodense thyroid nodule; suggest further evaluation with thyroid ultrasound. Cholecystectomy. Hysterectomy. Additional findings as above.
[2018-10-01] MEDS ORDERED: Ciprofloxacin 400mg/200ml D5W 400 MG/200 ML BAG IVPB STA (15:25)
[2018-10-01] MEDS ORDERED: metroNIDAZOLE IV 500 mg/100 ml 500 MG/100 ML BAG IVPB STA (15:26)
[2018-10-01] MEDS ORDERED: metroNIDAZOLE IV 500 mg/100 ml 500 MG/100 ML BAG ONE (17:23)
[2018-10-01] MEDS ORDERED: Ciprofloxacin 400mg/200ml D5W 400 MG/200 ML BAG IVPB ONE (18:45)
[2018-10-01] MEDS ORDERED: Ciprofloxacin 200mg/100ml D5W 100 ML IVPB SCH (23:45)
[2018-10-02] MEDS ORDERED: metroNIDAZOLE IV 250mg/50 ml 250 MG/50 ML BAG IVPB SCH
[2018-10-02] MEDS ORDERED: metroNIDAZOLE IV 500 mg/100 ml 250 MG in Premixed IV 1 EA IVPB SCH
[2018-10-02] MEDS ORDERED: Ciprofloxacin 200mg/100ml D5W 100 ML IVPB SCH (00:15)
[2018-10-02 02:43] LABS: CK-MB < 0.22 ng/mL (0.0-3.38)
[2018-10-02] MEDS: metroNIDAZOLE IV 500 mg/100 ml 500 MG/100 ML BAG IVPB SCH ×2 (09:39→18:00)
--- NOTE | 2018-10-02 10:26 | CP.PCM.CON ---
History of Present Illness - History of Present Illness History of Present Illness: 83 yo female h/o HTN, Abdom aortic stent- now came to ER with CP and abdom pain. PAin is moderate and burning, Denies fever, chills, RB, melena, constip, diarrhea. Reports 10 lb WT LOSS x 2 months She reports having EGD and colonsocopy 2 months at - but i do not see it in the records. She does not know the GI doctors name. Review of Systems - Constitutional Constitutional: Fatigue, Weight Loss, Weakness. absent: Chills, Fever, Weight Gain - EENT Eyes: absent: Photophobia - Cardiovascular Cardiovascular: Chest Pain. absent: Dyspnea, Palpitations - Respiratory Respiratory: absent: Cough, Hemoptysis, Wheezing - Gastrointestinal Gastrointestinal: Abdominal Pain, Dyspepsia. absent: Coffee Ground Emesis, Constipation, Diarrhea, Hematemesis, Hematochezia, Loose Stools, Melena, Vomiting - Genitourinary Genitourinary: absent: Hematuria - Musculoskeletal Musculoskeletal: absent: Muscle Cramps - Integumentary Integumentary: absent: Jaundice - Neurological Neurological: absent: Convulsions Past Patient History - Infectious Disease Hx of Infectious Diseases: None - Past Medical History & Family History Past Medical History?: Yes - Past Social History Smoking Status: Never Smoked - CARDIAC Hx Cardiac Disorders: Yes Hx Hypertension: Yes - PULMONARY Hx Respiratory Disorders: No - NEUROLOGICAL Hx Neurological Disorder: No - HEENT Hx HEENT Problems: No - RENAL Hx Chronic Kidney Disease: No - ENDOCRINE/METABOLIC Hx Endocrine Disorders: No - HEMATOLOGICAL/ONCOLOGICAL Hx Blood Disorders: No Hx Human Immunodeficiency Virus (HIV): No - INTEGUMENTARY Hx Dermatological Problems: No - MUSCULOSKELETAL/RHEUMATOLOGICAL Hx Musculoskeletal Disorders: No Hx Falls: No - GASTROINTESTINAL Hx Gastrointestinal Disorders: Yes Hx Diverticulitis: Yes - GENITOURINARY/GYNECOLOGICAL Hx Genitourinary Disorders: No - PSYCHIATRIC Hx Psychophysiologic Disorder: Yes Hx Anxiety: Yes Hx Substance Use: No - SURGICAL HISTORY Hx Surgeries: Yes Hx Appendectomy: Yes Hx Cholecystectomy: Yes Hx Hysterectomy: Yes - ANESTHESIA Hx Anesthesia: Yes Hx Anesthesia Reactions: No Hx Malignant Hyperthermia: No Meds Allergies/Adverse Reactions: Allergies Allergy/AdvReac Type Severity Reaction Status Date / Time iodine Allergy Verified 10/01/18 10:21 Sulfa (Sulfonamide Allergy Verified 10/01/18 10:21 Antibiotics) trimethoprim Allergy Verified 10/01/18 10:21 SEAFOOD Allergy Uncoded 10/01/18 10:21 - Medications Medications: Current Medications Amlodipine Besylate (Norvasc) 5 mg PO DAILY [facility] Dicyclomine HCl (Bentyl) 10 mg PO BID [facility] Enoxaparin Sodium (Lovenox) 40 mg SC DAILY [facility] Ciprofloxacin (Cipro 400mg/200ml Dsw) 400 mg in 200 mls @ 133 mls/hr IVPB Q12H [facility]; Protocol Metronidazole (Flagyl) 500 mg in 100 mls @ 100 mls/hr IVPB Q8H [facility]; Protocol Last Admin: 10/02/18 09:39 Dose: 100 mls/hr Lorazepam (Ativan) 0.5 mg PO HS PRN PRN Reason: Anxiety Last Admin: 10/02/18 00:23 Dose: 0.5 mg Metoprolol Succinate (Toprol Xl) 25 mg PO DAILY [facility] Rosuvastatin Calcium (Crestor) 10 mg PO HS [facility] Spironolactone (Aldactone) 25 mg PO DAILY [facility] Sucralfate (Carafate Tab) 1 gm PO TID [facility] Physical Exam - Constitutional Appears: Non-toxic - Neck Exam Neck exam: Negative for: Tenderness - Respiratory Exam Respiratory Exam: Clear to Auscultation Bilateral - Cardiovascular Exam Cardiovascular Exam: RRR - GI/Abdominal Exam GI & Abdominal Exam: Normal Bowel Sounds, Soft. absent: Guarding, Mass, Pulsatile Mass, Rebound, Tenderness - Extremities Exam Extremities exam: Negative for: calf tenderness - Neurological Exam Neurological exam: Alert, Oriented x3 - Psychiatric Exam Psychiatric exam: Depressed - Skin Skin Exam: Intact Results - Vital Signs Recent Vital Signs: Last Vital Signs Temp 98.5 F 10/02/18 07:00 Pulse 95 H 10/02/18 07:25 Resp 20 10/02/18 07:00 BP 141/69 10/02/18 07:00 Pulse Ox 94 L 10/02/18 07:00 - Labs Result Diagrams: 10/01/18 11:12 10/01/18 11:12 Labs: Laboratory Results - last 24 hr 10/01/18 10/01/18 10/01/18 11:12 11:12 12:26 WBC 6.8 RBC 3.60 L Hgb 11.6 Hct 33.8 L MCV 93.8 MCH 32.3 H MCHC 34.4 RDW 15.1 H Plt Count 337 MPV 8.4 Neut % (Auto) 82.0 H Lymph % (Auto) 11.6 L Piatt % (Auto) 5.5 Eos % (Auto) 0.5 Baso % (Auto) 0.4 Neut # (Auto) 5.5 Lymph # (Auto) 0.8 L Piatt # (Auto) 0.4 Eos # (Auto) 0.0 Baso # (Auto) 0.0 Sodium 136 Potassium 3.7 Chloride 98 Carbon Dioxide 29 Anion Gap 13 BUN 16 Creatinine 0.7 Est GFR ( Amer) > 60 Est GFR (Non-Af Amer) > 60 Random Glucose 105 Calcium 9.4 Total Bilirubin 0.8 AST 47 H D ALT 36 Alkaline Phosphatase 97 Total Creatine Kinase CK-MB (Mass) Troponin I < 0.0120 NT-Pro-B Natriuret Pep 384 Total Protein 7.5 Albumin 4.3 Globulin 3.2 Albumin/Globulin Ratio 1.3 Lipase 54 Urine Color Straw Urine Clarity Clear Urine pH 9.0 Ur Specific [place] 1.006 Urine Protein Negative Urine Glucose (UA) Normal Urine Ketones Negative Urine Blood Negative Urine Nitrate Negative Urine Bilirubin Negative Urine Urobilinogen Normal Ur Leukocyte Esterase Neg Urine WBC (Auto) < 1 Urine RBC (Auto) 1 Urine Bacteria Rare 10/02/18 00:58 WBC RBC Hgb Hct MCV MCH MCHC RDW Plt Count MPV Neut % (Auto) Lymph % (Auto) Piatt % (Auto) Eos % (Auto) Baso % (Auto) Neut # (Auto) Lymph # (Auto) Piatt # (Auto) Eos # (Auto) Baso # (Auto) Sodium Potassium Chloride Carbon Dioxide Anion Gap BUN Creatinine Est GFR ( Amer) Est GFR (Non-Af Amer) Random Glucose Calcium Total Bilirubin AST ALT Alkaline Phosphatase Total Creatine Kinase 23 L CK-MB (Mass) < 0.22 Troponin I < 0.0120 NT-Pro-B Natriuret Pep Total Protein Albumin Globulin Albumin/Globulin Ratio Lipase Urine Color Urine Clarity Urine pH Ur Specific [place] Urine Protein Urine Glucose (UA) Urine Ketones Urine Blood Urine Nitrate Urine Bilirubin Urine Urobilinogen Ur Leukocyte Esterase Urine WBC (Auto) Urine RBC (Auto) Urine Bacteria Assessment & Plan (1) Abdominal pain Assessment and Plan: Diverticulitis on CT- which is different from CT 1 mo ago. Pt reports recent colonsocopy- need to get results. Status: Acute (2) Chest pain Status: Acute (3) Diverticulitis Assessment and Plan: New on CT compared to 1 mo ago. On Abx- feeling better today. Reprots colonsoocpy 2 mo ago- need to get report. If was not done, then need to consider colonosocpy in 1 month. Advance diet Status: Acute (4) AAA (abdominal aortic aneurysm) Assessment and Plan: stent Status: Acute (5) Esophageal reflux Status: Acute (6) Gastritis Status: Acute (7) Weakness generalized Status: Acute (8) Weight loss Assessment and Plan: 10 lbs. Unknown etiology.. Reports recent EGD and colonosocpy. Status: Acute (9) HTN (hypertension) Status: Chronic Priority: Medium
[2018-10-02] MEDS: Enoxaparin 40 mg Syringe SC SCH (10:28)
[2018-10-02] MEDS: Metoprolol Succinate 25 mg XL Tab PO SCH (10:29)
[2018-10-02] MEDS: Sucralfate 1 gm/10 ml Oral Susp UD PO SCH ×3 (11:25→19:00)
[2018-10-02] MEDS: Ciprofloxacin 400mg/200ml D5W 400 MG/200 ML BAG IVPB SCH ×2 (11:29→21:38)
[2018-10-02 12:35] LABS: CK-MB 0.24 ng/mL (0.0-3.38)
--- NOTE | 2018-10-02 16:14 | CP.PCM.HP ---
History of Present Illness - History of Present Illness History of Present Illness: 83 years old female with PMH significant for HTN, AAA, Insomnia and Hyperlipidemia who presents to ER complaining of Abdominal pain and nausea, denies any headache, neck pain, shortness of breath, cough or urinary symptoms. Present on Admission - Present on Admission Any Indicators Present on Admission: No Review of Systems - Constitutional Constitutional: Weight Loss - Cardiovascular Cardiovascular: Chest Pain - Gastrointestinal Gastrointestinal: Abdominal Pain, Nausea Past Patient History - Infectious Disease Hx of Infectious Diseases: None - Past Medical History & Family History Past Medical History?: Yes - Past Social History Smoking Status: Never Smoked - CARDIAC Hx Hypertension: Yes - PULMONARY Hx Respiratory Disorders: No - NEUROLOGICAL Hx Neurological Disorder: No - HEENT Hx HEENT Problems: No - RENAL Hx Chronic Kidney Disease: No - ENDOCRINE/METABOLIC Hx Endocrine Disorders: No - HEMATOLOGICAL/ONCOLOGICAL Hx Blood Disorders: No Hx Human Immunodeficiency Virus (HIV): No - INTEGUMENTARY Hx Dermatological Problems: No - MUSCULOSKELETAL/RHEUMATOLOGICAL Hx Musculoskeletal Disorders: No Hx Falls: No - GASTROINTESTINAL Hx Gastrointestinal Disorders: Yes Hx Diverticulitis: Yes - GENITOURINARY/GYNECOLOGICAL Hx Genitourinary Disorders: No - PSYCHIATRIC Hx Psychophysiologic Disorder: Yes Hx Anxiety: Yes Hx Substance Use: No - SURGICAL HISTORY Hx Surgeries: Yes Hx Appendectomy: Yes Hx Cholecystectomy: Yes Hx Hysterectomy: Yes - ANESTHESIA Hx Anesthesia: Yes Hx Anesthesia Reactions: No Hx Malignant Hyperthermia: No Meds Allergies/Adverse Reactions: Allergies Allergy/AdvReac Type Severity Reaction Status Date / Time iodine Allergy Verified 10/01/18 10:21 Sulfa (Sulfonamide Allergy Verified 10/01/18 10:21 Antibiotics) trimethoprim Allergy Verified 10/01/18 10:21 SEAFOOD Allergy Uncoded 10/01/18 10:21 Physical Exam - Constitutional Appears: Non-toxic, No Acute Distress - Head Exam Head Exam: ATRAUMATIC, NORMAL INSPECTION, NORMOCEPHALIC - Eye Exam Eye Exam: EOMI, Normal appearance Pupil Exam: PERRL - ENT Exam ENT Exam: Mucous Membranes Moist, Normal Exam - Neck Exam Neck exam: Positive for: Full Rom, Normal Inspection - Respiratory Exam Respiratory Exam: Clear to Auscultation Bilateral, NORMAL BREATHING PATTERN - Cardiovascular Exam Cardiovascular Exam: REGULAR RHYTHM, +S1, +S2 - GI/Abdominal Exam GI & Abdominal Exam: Normal Bowel Sounds, Soft - Extremities Exam Extremities exam: Positive for: full ROM, normal inspection - Back Exam Back exam: FULL ROM, NORMAL INSPECTION - Neurological Exam Neurological exam: Alert, CN II-XII Intact, Normal Gait, Oriented x3, Reflexes Normal - Psychiatric Exam Psychiatric exam: Normal Affect, Normal Mood - Skin Skin Exam: Dry, Intact Results - Vital Signs Recent Vital Signs: Last Vital Signs Temp 98.5 F 10/02/18 07:00 Pulse 67 10/02/18 12:26 Resp 20 10/02/18 07:00 BP 141/69 10/02/18 07:00 Pulse Ox 94 L 10/02/18 07:00 - Labs Result Diagrams: 10/01/18 11:12 10/01/18 11:12 Labs: Laboratory Results - last 24 hr 10/02/18 10/02/18 00:58 11:41 Total Creatine Kinase 23 L 31 CK-MB (Mass) < 0.22 0.24 Troponin I < 0.0120 < 0.0120 Assessment & Plan (1) Diverticulitis Assessment and Plan: IV Cipro + IV Flagil. IV Fluids. GI evaluation. CBC Diff. CMP. Amylase. Lipase. DVT Prophylaxis. Status: Acute (2) Thyroid nodule Assessment and Plan: US Thyroid gland. Status: Acute (3) HTN (hypertension) Assessment and Plan: Continue same treatment. Status: Chronic Priority: Medium
--- NOTE | 2018-10-02 17:31 | US ---
Date of service: 10/02/2018 HISTORY: [address] TECHNIQUE: Sonographic evaluation of the thyroid gland. COMPARISON: CT chest, abdomen, and pelvis without IV contrast performed 10/01/18 FINDINGS: RIGHT LOBE: Measures 4.5 x 1.7 x 1.9 cm. Normal echotexture and flow. Nodules: 1.2 x 1.0 x 0.8 cm midpole heterogeneous mostly isoechoic nodule. No evidence of associated calcifications. LEFT LOBE: Measures 3.3 x 0.8 x 1.1 cm. Normal echotexture and flow. Nodules: None ISTHMUS: Measures 0.3 cm. Normal echotexture and flow. Nodules: None OTHER FINDINGS: None . IMPRESSION: Indeterminate 1.2 x 1.0 x 0.8 cm right midpole heterogeneous mostly isoechoic thyroid nodule
[2018-10-02] MEDS: Sodium Chloride 0.9% 1,000 ML IV SCH (20:41)
[2018-10-02 22:48] LABS: AMYLASE 57 U/L (30-110); LIPASE 61 U/L (23-300)
[2018-10-03] MEDS: metroNIDAZOLE IV 500 mg/100 ml 500 MG/100 ML BAG IVPB SCH ×3 (00:27→18:16)
[2018-10-03 07:44] LABS: BASO % 0.4 % (0.0-2.0); EOS # 0.2 K/uL (0.0-0.7); EOS % 3.3 % (0.0-4.0); HEMOGLOBIN 10.4 g/dL (11.0-16.0); LYMPH # 1.2 K/uL (1.0-4.3); MEAN CELL VOLUME 94.1 fL (81.0-99.0); MEAN CORPUSCULAR HEMOGLOBIN 32.6 pg (27.0-31.0); MEAN CORPUSCULAR HGB CONC 34.6 g/dL (33.0-37.0); MEAN PLATELET VOLUME 8.2 fL (7.2-11.7); MONO # 0.5 K/uL (0.0-0.8); MONO % 7.8 % (0.0-10.0); NEUT # 4.7 K/uL (1.8-7.0); NEUT % 70.5 % (50.0-75.0); NRBC % 0.1 % (0.0-2.0); RBC 3.19 Mil/uL (3.80-5.20); RED CELL DISTRIBUTION WIDTH 15.1 % (11.5-14.5); WHITE BLOOD COUNT 6.6 K/uL (4.8-10.8)
[2018-10-03 08:12] LABS: ALB/GLOB RATIO 1.4 (1.0-2.1); ALBUMIN 3.2 g/dL (3.5-5.0); ALT/SGPT 29 U/L (9-52); AST/SGOT 33 U/L (14-36); BLOOD UREA NITROGEN 14 mg/dL (7-17); GFR NON-AFRICAN AMERICAN > 60
[2018-10-03] MEDS ORDERED: Potassium Chloride 20 mEq ER Tab PO ONE ×2 (10:00→12:00)
[2018-10-03] MEDS: Ciprofloxacin 400mg/200ml D5W 400 MG/200 ML BAG IVPB SCH ×2 (10:38→21:13)
[2018-10-03] MEDS: Sucralfate 1 gm/10 ml Oral Susp UD PO SCH ×3 (11:13→18:15)
[2018-10-03] MEDS: Metoprolol Succinate 25 mg XL Tab PO SCH (11:13)
[2018-10-03] MEDS: Enoxaparin 40 mg Syringe SC SCH (11:14)
--- NOTE | 2018-10-03 12:11 | CP.PCM.PN ---
Subjective - Date & Time of Evaluation Date of Evaluation: 10/03/18 Time of Evaluation: 12:08 - Subjective Subjective: f/u abdominal pain Poor historian "I feel weak and my Potassium is low" Laying in bed, lethargic, depressed. Says she has right sided abdominal pain Objective - Vital Signs/Intake and Output Vital Signs (last 24 hours): Temp Pulse Resp BP Pulse Ox 98.2 F 77 18 131/70 93 L 10/03/18 07:46 10/03/18 07:46 10/03/18 07:46 10/03/18 07:46 10/03/18 07:46 - Medications Medications: Current Medications Amlodipine Besylate (Norvasc) 5 mg PO DAILY [facility] Last Admin: 10/03/18 11:13 Dose: 5 mg Dicyclomine HCl (Bentyl) 10 mg PO BID [facility] Last Admin: 10/03/18 11:14 Dose: 10 mg Enoxaparin Sodium (Lovenox) 40 mg SC DAILY [facility] Last Admin: 10/03/18 11:14 Dose: 40 mg Ciprofloxacin (Cipro 400mg/200ml Dsw) 400 mg in 200 mls @ 133 mls/hr IVPB Q12H [facility]; Protocol Last Admin: 10/03/18 10:38 Dose: 133 mls/hr Metronidazole (Flagyl) 500 mg in 100 mls @ 100 mls/hr IVPB Q8H [facility]; Protocol Last Admin: 10/03/18 08:53 Dose: 100 mls/hr Sodium Chloride (Sodium Chloride 0.9%) 1,000 mls @ 80 mls/hr IV .[id number] [facility] Last Admin: 10/02/18 20:41 Dose: 80 mls/hr Lorazepam (Ativan) 0.5 mg PO HS PRN PRN Reason: Anxiety Last Admin: 10/02/18 21:37 Dose: 0.5 mg Metoprolol Succinate (Toprol Xl) 25 mg PO DAILY [facility] Last Admin: 10/03/18 11:13 Dose: 25 mg Rosuvastatin Calcium (Crestor) 10 mg PO HS [facility] Last Admin: 10/02/18 21:37 Dose: 10 mg Spironolactone (Aldactone) 25 mg PO DAILY [facility] Last Admin: 10/03/18 11:13 Dose: 25 mg Sucralfate (Carafate Oral Susp) 1 gm PO TID [facility] Last Admin: 10/03/18 11:13 Dose: 1 gm - Labs Labs: 10/03/18 07:37 10/03/18 07:37 - Constitutional Appears: Chronically Ill - Head Exam Head Exam: NORMOCEPHALIC - Respiratory Exam Respiratory Exam: NORMAL BREATHING PATTERN - Cardiovascular Exam Cardiovascular Exam: REGULAR RHYTHM - GI/Abdominal Exam GI & Abdominal Exam: Soft. absent: Distended, Guarding, Tenderness, Mass, Rebound Assessment and Plan (1) Abdominal pain Assessment & Plan: Normal labs and no source of pain on CT aside from perhaps a mild right sided diverticulitis. Pain is most likely functional. Rec: Get colonoscopy and EGD records from [place], treat with Bentyl and antibiotics, monitor response. Status: Acute
--- NOTE | 2018-10-03 17:19 | CARD ---
APPROVED REPORT Date of service: 10/01/2018 EKG Measurement Heart [id number] <Conclusion> Normal sinus rhythm Left axis deviation Nonspecific T wave abnormality Abnormal ECG
--- NOTE | 2018-10-03 17:19 | CARD ---
APPROVED REPORT Date of service: 10/01/2018 EKG Measurement Heart [id number] <Conclusion> Normal sinus rhythm Left axis deviation Abnormal ECG
[2018-10-03] MEDS: Sodium Chloride 0.9% 1,000 ML IV SCH (18:24)
--- NOTE | 2018-10-03 19:56 | CP.PCM.PN ---
Subjective - Date & Time of Evaluation Date of Evaluation: 10/03/18 Time of Evaluation: 19:54 - Subjective Subjective: Patient denies any vomiting or abdominal pain. Objective - Vital Signs/Intake and Output Vital Signs (last 24 hours): Temp Pulse Resp BP Pulse Ox 98.1 F 94 H 20 127/68 96 10/03/18 15:36 10/03/18 17:30 10/03/18 15:36 10/03/18 15:36 10/03/18 15:36 Intake and Output: 10/03/18 10/04/18 18:59 06:59 Intake Total 920 Balance 920 - Medications Medications: Current Medications Amlodipine Besylate (Norvasc) 5 mg PO DAILY [facility] Last Admin: 10/03/18 11:13 Dose: 5 mg Dicyclomine HCl (Bentyl) 10 mg PO BID [facility] Last Admin: 10/03/18 18:15 Dose: 10 mg Enoxaparin Sodium (Lovenox) 40 mg SC DAILY [facility] Last Admin: 10/03/18 11:14 Dose: 40 mg Ciprofloxacin (Cipro 400mg/200ml Dsw) 400 mg in 200 mls @ 133 mls/hr IVPB Q12H [facility]; Protocol Last Admin: 10/03/18 10:38 Dose: 133 mls/hr Metronidazole (Flagyl) 500 mg in 100 mls @ 100 mls/hr IVPB Q8H [facility]; Protocol Last Admin: 10/03/18 18:16 Dose: 100 mls/hr Sodium Chloride (Sodium Chloride 0.9%) 1,000 mls @ 80 mls/hr IV .[id number] [facility] Last Admin: 10/03/18 18:24 Dose: 80 mls/hr Lorazepam (Ativan) 0.5 mg PO HS PRN PRN Reason: Anxiety Last Admin: 10/02/18 21:37 Dose: 0.5 mg Metoprolol Succinate (Toprol Xl) 25 mg PO DAILY [facility] Last Admin: 10/03/18 11:13 Dose: 25 mg Rosuvastatin Calcium (Crestor) 10 mg PO HS [facility] Last Admin: 10/02/18 21:37 Dose: 10 mg Spironolactone (Aldactone) 25 mg PO DAILY [facility] Last Admin: 10/03/18 11:13 Dose: 25 mg Sucralfate (Carafate Oral Susp) 1 gm PO TID [facility] Last Admin: 10/03/18 18:15 Dose: 1 gm - Labs Labs: 10/03/18 07:37 10/03/18 07:37 - Constitutional Appears: Well, Non-toxic, No Acute Distress - Head Exam Head Exam: ATRAUMATIC, NORMAL INSPECTION, NORMOCEPHALIC - Eye Exam Eye Exam: EOMI, Normal appearance Pupil Exam: PERRL - Neck Exam Neck Exam: Full ROM, Normal Inspection - Respiratory Exam Respiratory Exam: Clear to Ausculation Bilateral, NORMAL BREATHING PATTERN - Cardiovascular Exam Cardiovascular Exam: REGULAR RHYTHM, +S1, +S2 - GI/Abdominal Exam GI & Abdominal Exam: Soft, Normal Bowel Sounds - Extremities Exam Extremities Exam: Full ROM, Normal Capillary Refill, Normal Inspection - Back Exam Back Exam: Full ROM, NORMAL INSPECTION - Neurological Exam Neurological Exam: Alert, Awake, CN II-XII Intact, Normal Gait, Oriented x3 - Skin Skin Exam: Dry, Intact Assessment and Plan (1) Diverticulitis Assessment & Plan: Continue same treatment. Status: Acute (2) Hypokalemia Assessment & Plan: Potassium replacement. BMP in AM. Status: Resolved (3) HTN (hypertension) Assessment & Plan: Continue same treatment. Status: Chronic (4) Thyroid nodule Assessment & Plan: FNA Biopsy as outpatient. Status: Acute
[2018-10-04] MEDS: metroNIDAZOLE IV 500 mg/100 ml 500 MG/100 ML BAG IVPB SCH ×3 (01:16→17:52)
--- NOTE | 2018-10-04 08:58 | CP.PCM.PN ---
Subjective - Date & Time of Evaluation Date of Evaluation: 10/04/18 Time of Evaluation: 08:55 - Subjective Subjective: f/u abdominal pain doesn't remember seeing me yesterday. Denies abdominal pain. Poor appetite. No BMs. Records from [place] reviewed: 07/25/18- Colonoscopy by Dr Harman- severe left sided colitis with rectal sparing c/w infection/ischemia, pathology c/w pseudomembranous colitis. EGD 07/26/18- essentially unremarkable, biopsies unrem arkable. Objective - Vital Signs/Intake and Output Vital Signs (last 24 hours): Temp Pulse Resp BP Pulse Ox 98.1 F 65 18 130/70 97 10/04/18 00:00 10/04/18 04:00 10/04/18 00:00 10/04/18 00:00 10/04/18 00:00 Intake and Output: 10/04/18 10/04/18 06:59 18:59 Intake Total 640 Balance 640 - Medications Medications: Current Medications Amlodipine Besylate (Norvasc) 5 mg PO DAILY [facility] Last Admin: 10/03/18 11:13 Dose: 5 mg Dicyclomine HCl (Bentyl) 10 mg PO BID [facility] Last Admin: 10/03/18 18:15 Dose: 10 mg Enoxaparin Sodium (Lovenox) 40 mg SC DAILY [facility] Last Admin: 10/03/18 11:14 Dose: 40 mg Ciprofloxacin (Cipro 400mg/200ml Dsw) 400 mg in 200 mls @ 133 mls/hr IVPB Q12H [facility]; Protocol Last Admin: 10/03/18 21:13 Dose: 133 mls/hr Metronidazole (Flagyl) 500 mg in 100 mls @ 100 mls/hr IVPB Q8H [facility]; Protocol Last Admin: 10/04/18 01:16 Dose: 100 mls/hr Sodium Chloride (Sodium Chloride 0.9%) 1,000 mls @ 80 mls/hr IV .[id number] [facility] Last Admin: 10/03/18 18:24 Dose: 80 mls/hr Lorazepam (Ativan) 0.5 mg PO HS PRN PRN Reason: Anxiety Last Admin: 10/03/18 22:19 Dose: 0.5 mg Metoprolol Succinate (Toprol Xl) 25 mg PO DAILY [facility] Last Admin: 10/03/18 11:13 Dose: 25 mg Rosuvastatin Calcium (Crestor) 10 mg PO HS [facility] Last Admin: 10/03/18 21:14 Dose: 10 mg Spironolactone (Aldactone) 25 mg PO DAILY [facility] Last Admin: 10/03/18 11:13 Dose: 25 mg Sucralfate (Carafate Oral Susp) 1 gm PO TID [facility] Last Admin: 10/03/18 18:15 Dose: 1 gm - Labs Labs: 10/03/18 07:37 10/03/18 07:37 - Constitutional Appears: Well, No Acute Distress - Respiratory Exam Respiratory Exam: Clear to Ausculation Bilateral - GI/Abdominal Exam GI & Abdominal Exam: Soft. absent: Distended, Guarding, Tenderness, Mass Assessment and Plan (1) Abdominal pain Assessment & Plan: Resolved Recommend continue Bentyl, and complete 2 week course of antibiotics as outpatient. GI stable for discharge. F/U in office in 2 weeks. Colonoscopy incomplete in Jul 2018, (only left side visualized). Due to advanced age, not absolutely indicated to repeat for screening purposes Status: Acute
[2018-10-04 09:05] LABS: BLOOD UREA NITROGEN 12 mg/dL (7-17); CALCIUM 9.1 mg/dl (8.6-10.4); GFR NON-AFRICAN AMERICAN > 60
[2018-10-04] MEDS: Enoxaparin 40 mg Syringe SC SCH (09:16)
[2018-10-04] MEDS: Sucralfate 1 gm/10 ml Oral Susp UD PO SCH ×3 (09:20→17:59)
[2018-10-04] MEDS: Ciprofloxacin 400mg/200ml D5W 400 MG/200 ML BAG IVPB SCH ×2 (10:42→21:06)
[2018-10-04] MEDS: Metoprolol Succinate 25 mg XL Tab PO SCH (13:16)
--- NOTE | 2018-10-04 13:24 | CP.PCM.PN ---
Subjective - Date & Time of Evaluation Date of Evaluation: 10/04/18 Time of Evaluation: 13:17 - Subjective Subjective: PATIEN Objective - Vital Signs/Intake and Output Vital Signs (last 24 hours): Temp Pulse Resp BP Pulse Ox 97.9 F 83 20 148/79 96 10/04/18 09:10 10/04/18 09:10 10/04/18 09:10 10/04/18 09:10 10/04/18 09:10 Intake and Output: 10/04/18 10/04/18 06:59 18:59 Intake Total 640 Balance 640 - Medications Medications: Current Medications Amlodipine Besylate (Norvasc) 5 mg PO DAILY [facility] Last Admin: 10/03/18 11:13 Dose: 5 mg Dicyclomine HCl (Bentyl) 10 mg PO BID [facility] Last Admin: 10/04/18 09:18 Dose: 10 mg Enoxaparin Sodium (Lovenox) 40 mg SC DAILY [facility] Last Admin: 10/04/18 09:16 Dose: 40 mg Ciprofloxacin (Cipro 400mg/200ml Dsw) 400 mg in 200 mls @ 133 mls/hr IVPB Q12H [facility]; Protocol Last Admin: 10/04/18 10:42 Dose: 133 mls/hr Metronidazole (Flagyl) 500 mg in 100 mls @ 100 mls/hr IVPB Q8H [facility]; Protocol Last Admin: 10/04/18 09:40 Dose: 100 mls/hr Sodium Chloride (Sodium Chloride 0.9%) 1,000 mls @ 80 mls/hr IV .[id number] [facility] Last Admin: 10/03/18 18:24 Dose: 80 mls/hr Lorazepam (Ativan) 0.5 mg PO HS PRN PRN Reason: Anxiety Last Admin: 10/03/18 22:19 Dose: 0.5 mg Metoprolol Succinate (Toprol Xl) 25 mg PO DAILY [facility] Last Admin: 10/03/18 11:13 Dose: 25 mg Rosuvastatin Calcium (Crestor) 10 mg PO HS [facility] Last Admin: 10/03/18 21:14 Dose: 10 mg Spironolactone (Aldactone) 25 mg PO DAILY [facility] Last Admin: 10/03/18 11:13 Dose: 25 mg Sucralfate (Carafate Oral Susp) 1 gm PO TID [facility] Last Admin: 10/04/18 13:02 Dose: 1 gm - Labs Labs: 10/03/18 07:37 10/04/18 08:47 Assessment and Plan - Assessment and Plan (Free Text) Assessment: FOLLOW UP WITH DR CASTRO IN HIS OFFICE ----CALL FOR APPOINTMENT ADDRESS YOUR FINE NEEDED BIOPSY AT YOUR VISIT FOLLOW UP WITH DR CHANEL IN 2 WEEK -----CALL FOR APPOINTMENT CONTINUE HOME MEDICATION NEW PRESCRIPTION GIVEN CIPRO 500 MG PO Q12H FOR 14 DAYS FLORASTOR 205 MG PO BID FOR 14 DAYS ACTIVITY TOLERATED CALL DR CASTRO OR GO TO THE EMERGENCY ROOM IF SYMPTOM RETURN OR WORSENING
--- NOTE | 2018-10-04 15:34 | CP.PCM.DIS ---
Provider - Provider Date of Admission: 10/01/18 15:26 Attending physician: Umberto Castro MD Consults: 10/02/18 00:06 Gastroenterology Consult Routine Comment: Consulting Provider: Rigoberto Reveles Consulting Physician: Rigoberto Reveles Reason for Consult: Abd pain 10/02/18 01:40 Social Work Referral Routine Comment: Lives alone Physician Instructions: Reason For Exam: Clarence score 11 Time Spent in preparation of Discharge (in minutes): 30 Diagnosis - Discharge Diagnosis (1) Diverticulitis Status: Acute (2) Hypokalemia Status: Resolved (3) HTN (hypertension) Status: Chronic Priority: Medium (4) Thyroid nodule Status: Acute Hospital Course - Lab Results Lab Results: Micro Results 10/01/18 17:20 Blood Blood Culture - Preliminary NO GROWTH AFTER 48 HOURS 10/01/18 16:20 Blood Blood Culture - Preliminary NO GROWTH AFTER 48 HOURS Most Recent Lab Values WBC 6.6 K/uL (4.8-10.8) 10/03/18 07:37 RBC 3.19 Mil/uL (3.80-5.20) L 10/03/18 07:37 Hgb 10.4 g/dL (11.0-16.0) L 10/03/18 07:37 Hct 30.0 % (34.0-47.0) L 10/03/18 07:37 MCV 94.1 fL (81.0-99.0) 10/03/18 07:37 MCH 32.6 pg (27.0-31.0) H 10/03/18 07:37 MCHC 34.6 g/dL (33.0-37.0) 10/03/18 07:37 RDW 15.1 % (11.5-14.5) H 10/03/18 07:37 Plt Count 274 K/uL (130-400) 10/03/18 07:37 MPV 8.2 fL (7.2-11.7) 10/03/18 07:37 Neut % (Auto) 70.5 % (50.0-75.0) 10/03/18 07:37 Lymph % (Auto) 18.0 % (20.0-40.0) L 10/03/18 07:37 [place] % (Auto) 7.8 % (0.0-10.0) 10/03/18 07:37 Eos % (Auto) 3.3 % (0.0-4.0) 10/03/18 07:37 Baso % (Auto) 0.4 % (0.0-2.0) 10/03/18 07:37 Neut # (Auto) 4.7 K/uL (1.8-7.0) 10/03/18 07:37 Lymph # (Auto) 1.2 K/uL (1.0-4.3) 10/03/18 07:37 [place] # (Auto) 0.5 K/uL (0.0-0.8) 10/03/18 07:37 Eos # (Auto) 0.2 K/uL (0.0-0.7) 10/03/18 07:37 Baso # (Auto) 0.0 K/uL (0.0-0.2) 10/03/18 07:37 Sodium 138 mmol/L (132-148) 10/04/18 08:47 Potassium 3.7 mmol/L (3.6-5.2) 10/04/18 08:47 Chloride 103 mmol/L (98-107) 10/04/18 08:47 Carbon Dioxide 29 mmol/L (22-30) 10/04/18 08:47 Anion Gap 10 (10-20) 10/04/18 08:47 BUN 12 mg/dL (7-17) 10/04/18 08:47 Creatinine 0.8 mg/dL (0.7-1.2) 10/04/18 08:47 Est GFR ( Amer) > 60 10/04/18 08:47 Est GFR (Non-Af Amer) > 60 10/04/18 08:47 Random Glucose 94 mg/dL (65-105) 10/04/18 08:47 Calcium 9.1 mg/dl (8.6-10.4) 10/04/18 08:47 Total Bilirubin 0.5 mg/dL (0.2-1.3) 10/03/18 07:37 AST 33 U/L (14-36) 10/03/18 07:37 ALT 29 U/L (9-52) 10/03/18 07:37 Alkaline Phosphatase 60 U/L (38-126) 10/03/18 07:37 Total Creatine Kinase 31 U/L (30-135) 10/02/18 11:41 CK-MB (Mass) 0.24 ng/mL (0.0-3.38) 10/02/18 11:41 Troponin I < 0.0120 ng/mL (0.00-0.120) 10/02/18 11:41 NT-Pro-B Natriuret Pep 384 pg/mL (0-900) 10/01/18 11:12 Total Protein 5.6 g/dL (6.3-8.3) L 10/03/18 07:37 Albumin 3.2 g/dL (3.5-5.0) L D 10/03/18 07:37 Globulin 2.4 gm/dL (2.2-3.9) 10/03/18 07:37 Albumin/Globulin Ratio 1.4 (1.0-2.1) 10/03/18 07:37 Amylase 57 U/L (30-110) 10/02/18 22:00 Lipase 61 U/L (23-300) 10/02/18 22:00 Urine Color Straw (YELLOW) 10/01/18 12:26 Urine Clarity Clear (Clear) 10/01/18 12:26 Urine pH 9.0 (5.0-8.0) 10/01/18 12:26 Ur Specific [place] 1.006 (1.003-1.030) 10/01/18 12:26 Urine Protein Negative mg/dL (NEGATIVE) 10/01/18 12:26 Urine Glucose (UA) Normal mg/dL (Normal) 10/01/18 12:26 Urine Ketones Negative mg/dL (NEGATIVE) 10/01/18 12:26 Urine Blood Negative (NEGATIVE) 10/01/18 12:26 Urine Nitrate Negative (NEGATIVE) 10/01/18 12:26 Urine Bilirubin Negative (NEGATIVE) 10/01/18 12:26 Urine Urobilinogen Normal mg/dL (0.2-1.0) 10/01/18 12:26 Ur Leukocyte Esterase Neg Debra/uL (Negative) 10/01/18 12:26 Urine WBC (Auto) < 1 /hpf (0-5) 10/01/18 12:26 Urine RBC (Auto) 1 /hpf (0-3) 10/01/18 12:26 Urine Bacteria Rare (<OCC) 10/01/18 12:26 - Hospital Course Hospital Course: 83 years old female with PMH significant for HTN, AAA, Hyperlipidemia and Colitis. Patient presents to ER complaining of abdominal pain and chest pain. CT scan of the Abdomen showed Diverticulitis. Patient started on IV Cipro + IV Flagyl. GI consult requested. Patient's condition improved and she was cleared by GI and discharged home. - Date & Time of H&P Date of H&P: 10/02/18 Time of H&P: 15:34 Discharge Exam - Head Exam Head Exam: ATRAUMATIC, NORMAL INSPECTION, NORMOCEPHALIC - Eye Exam Eye Exam: EOMI, Normal appearance, PERRL - Neck Exam Neck exam: Full Rom, Normal Inspection - Respiratory Exam Respiratory Exam: NORMAL BREATHING PATTERN, UNREMARKABLE - Cardiovascular Exam Cardiovascular Exam: REGULAR RHYTHM - GI/Abdominal Exam GI & Abdominal Exam: Normal Bowel Sounds, Unremarkable - Extremities Exam Extremities exam: full ROM Discharge Plan - Discharge Medications Prescriptions: Ciprofloxacin [Cipro] 500 mg PO Q12H 14 Days tab Saccharomyces Boulardi [Florastor] 250 mg PO BID 14 Days cap - Follow Up Plan Condition: STABLE Disposition: HOME/ ROUTINE Instructions: Acute Abdominal Pain (DC), Acute Abdominal Pain (GEN), Diverticulitis (DC), Diverticulitis (GEN), Diverticulitis Diet (DC), Hypokalemia (DC), Hypokalemia (GEN) Additional Instructions: FOLLOW UP WITH DR CASTRO IN HIS OFFICE ----CALL FOR APPOINTMENT ADDRESS YOUR FINE NEEDED BIOPSY AT YOUR VISIT FOLLOW UP WITH DR REVELES IN 2 WEEK -----CALL FOR APPOINTMENT CONTINUE HOME MEDICATION NEW PRESCRIPTION GIVEN CIPRO 500 MG PO Q12H FOR 14 DAYS FLORASTOR 205 MG PO BID FOR 14 DAYS ACTIVITY TOLERATED CALL DR CASTRO OR GO TO THE EMERGENCY ROOM IF SYMPTOM RETURN OR WORSENING Referrals: Umberto Castro MD [Staff Provider] - Rigoberto Reveles MD [Staff Provider] -
[2018-10-04] MEDS: Sodium Chloride 0.9% 1,000 ML IV SCH (21:09)
[2018-10-05] MEDS: metroNIDAZOLE IV 500 mg/100 ml 500 MG/100 ML BAG IVPB SCH ×3 (00:11→15:53)
[2018-10-05 02:00] VITALS: RESP 20
[2018-10-05] MEDS: Sucralfate 1 gm/10 ml Oral Susp UD PO SCH ×4 (08:05→17:20)
[2018-10-05] MEDS: Enoxaparin 40 mg Syringe SC SCH (10:15)
[2018-10-05] MEDS: Ciprofloxacin 400mg/200ml D5W 400 MG/200 ML BAG IVPB SCH ×2 (10:15→21:37)
[2018-10-05] MEDS: Metoprolol Succinate 25 mg XL Tab PO SCH (10:16)
--- NOTE | 2018-10-05 11:02 | CP.PCM.PN ---
Subjective - Date & Time of Evaluation Date of Evaluation: 10/05/18 Time of Evaluation: 10:59 - Subjective Subjective: Patient complaining of abdominal pain, denies any nausea, vomiting or fever. Objective - Vital Signs/Intake and Output Vital Signs (last 24 hours): Temp Pulse Resp BP Pulse Ox 98.4 F 99 H 20 148/70 95 10/05/18 09:04 10/05/18 09:04 10/05/18 09:04 10/05/18 09:04 10/05/18 09:04 Intake and Output: 10/05/18 10/05/18 06:59 18:59 Intake Total 780 Balance 780 - Medications Medications: Current Medications Amlodipine Besylate (Norvasc) 5 mg PO DAILY [facility] Last Admin: 10/05/18 10:15 Dose: 5 mg Dicyclomine HCl (Bentyl) 10 mg PO BID [facility] Last Admin: 10/05/18 10:14 Dose: 10 mg Enoxaparin Sodium (Lovenox) 40 mg SC DAILY [facility] Last Admin: 10/05/18 10:15 Dose: 40 mg Ciprofloxacin (Cipro 400mg/200ml Dsw) 400 mg in 200 mls @ 133 mls/hr IVPB Q12H [facility]; Protocol Last Admin: 10/05/18 10:15 Dose: 133 mls/hr Metronidazole (Flagyl) 500 mg in 100 mls @ 100 mls/hr IVPB Q8H [facility]; Protocol Last Admin: 10/05/18 07:46 Dose: 100 mls/hr Sodium Chloride (Sodium Chloride 0.9%) 1,000 mls @ 80 mls/hr IV .[id number] [facility] Last Admin: 10/04/18 21:09 Dose: 80 mls/hr Lorazepam (Ativan) 0.5 mg PO HS PRN PRN Reason: Anxiety Last Admin: 10/04/18 19:52 Dose: 0.5 mg Metoprolol Succinate (Toprol Xl) 25 mg PO DAILY [facility] Last Admin: 10/05/18 10:16 Dose: 25 mg Rosuvastatin Calcium (Crestor) 10 mg PO HS [facility] Last Admin: 10/04/18 21:06 Dose: 10 mg Spironolactone (Aldactone) 25 mg PO DAILY [facility] Last Admin: 10/05/18 10:14 Dose: 25 mg Sucralfate (Carafate Oral Susp) 1 gm PO TID [facility] Last Admin: 10/05/18 10:07 Dose: Not Given - Labs Labs: 10/03/18 07:37 10/04/18 08:47 - Constitutional Appears: Well, Non-toxic, No Acute Distress - Head Exam Head Exam: ATRAUMATIC, NORMAL INSPECTION, NORMOCEPHALIC - Eye Exam Eye Exam: EOMI, PERRL - Neck Exam Neck Exam: Full ROM, Normal Inspection - Respiratory Exam Respiratory Exam: Clear to Ausculation Bilateral, NORMAL BREATHING PATTERN - Cardiovascular Exam Cardiovascular Exam: REGULAR RHYTHM, +S1, +S2 - GI/Abdominal Exam GI & Abdominal Exam: Soft, Tenderness (No rebound, no rigidity, no guarding. ), Normal Bowel Sounds - Back Exam Back Exam: Full ROM, NORMAL INSPECTION - Neurological Exam Neurological Exam: Alert, Awake, CN II-XII Intact, Normal Gait, Oriented x3 - Psychiatric Exam Psychiatric exam: Anxious, Depressed - Skin Skin Exam: Dry, Intact, Normal Color Assessment and Plan (1) Abdominal pain Assessment & Plan: CBC Diff. CMP. Amylase. Lipase. ESR. UA. C&S. GI consult. US Abdomen and Pelvis. Continue IV Antibiotics. Status: Acute (2) Diverticulitis Assessment & Plan: CBC Diff. CMP. Amylase. Lipase. ESR. UA. C&S. GI consult. US Abdomen and Pelvis. Continue IV Antibiotics. Status: Acute (3) HTN (hypertension) Status: Chronic (4) Thyroid nodule Status: Acute (5) Hypokalemia Status: Resolved
[2018-10-05 13:36] LABS: SQUAMOUS EPITHIAL < 1 /hpf (0-5); URINE BACTERIA RARE (<OCC); URINE BILIRUBIN NEGATIVE (NEGATIVE); URINE BLOOD NEGATIVE (NEGATIVE); URINE CLARITY Clear (Clear); URINE COLOR Yellow (YELLOW); URINE GLUCOSE (UA) NORMAL (Normal); URINE LEUKOCYTE ESTERASE NEG Leu/uL (Negative); URINE PROTEIN NEGATIVE (NEGATIVE); URINE UROBILINOGEN NORMAL mg/dL (0.2-1.0)
[2018-10-05 14:08] LABS: BASO % 0.3 % (0.0-2.0); EOS # 0.1 K/uL (0.0-0.7); LYMPH # 1.2 K/uL (1.0-4.3); LYMPH % 17.2 % (20.0-40.0); MEAN CELL VOLUME 94.6 fL (81.0-99.0); MEAN CORPUSCULAR HEMOGLOBIN 32.3 pg (27.0-31.0); MEAN CORPUSCULAR HGB CONC 34.2 g/dL (33.0-37.0); MEAN PLATELET VOLUME 8.4 fL (7.2-11.7); MONO # 0.5 K/uL (0.0-0.8); NEUT # 4.9 K/uL (1.8-7.0); NEUT % 73.5 % (50.0-75.0); RBC 3.4 Mil/uL (3.80-5.20); RED CELL DISTRIBUTION WIDTH 15.5 % (11.5-14.5); WHITE BLOOD COUNT 6.7 K/uL (4.8-10.8)
[2018-10-05 14:34] LABS: ALB/GLOB RATIO 1.4 (1.0-2.1); ALT/SGPT 36 U/L (9-52); AMYLASE 55 U/L (30-110); AST/SGOT 48 U/L (14-36); BLOOD UREA NITROGEN 10 mg/dL (7-17); CALCIUM 9.2 mg/dl (8.6-10.4); GFR NON-AFRICAN AMERICAN 60; LIPASE 55 U/L (23-300)
--- NOTE | 2018-10-05 16:29 | US ---
Abdominal ultrasound HISTORY: Urolithiasis. COMPARISON: CT dated 10/01/2018 Technique: Real-time sonography was performed through the abdomen. Findings: Liver: 12.1 centimeters in length. Increased echogenicity of the hepatic parenchymal cortex suggestive for fatty infiltration versus hepatic parenchymal disease. Clinical correlation. Prior cholecystectomy. Prominent common bile duct measuring 9.8 millimeters. Limited visualization of the pancreas. Spleen measures 7.4 centimeters in length, within normal limits. Visualized IVC grossly preserved. Mild aneurysmal prominence of the aorta measuring up to 2.1 x 1.8 x 1.8 centimeters. Right kidney: 11.8 x 4.4 x 4.6 centimeters. No calculi or hydronephrosis. Upper pole hypoechoic cyst measuring 1.2 x 1.1 x 1.4 centimeters and mid pole hypoechoic cyst measuring 1.5 x 1.2 x 1.8 centimeters. Left Kidney: 11.5 x 5.6 x 5.6 centimeters. Mild left renal hydronephrosis. No gross calculi. Lower pole hypoechoic cyst measuring 2.1 x 1.8 x 2.1 centimeters containing an internal echogenic septation and or mild peripheral nodularity and additional lower pole hypoechoic cyst measuring 0.8 x 0.6 x 0.7 centimeters. Impression: Mild left renal hydronephrosis. Bilateral renal cysts. Increased echogenicity of the hepatic parenchymal cortex suggestive for fatty infiltration versus hepatic parenchymal disease. Clinical correlation. Mild aneurysmal prominence of the aorta. Prominent common bile duct.
[2018-10-05] MEDS: Saccharomyces Boulardi 250 mg Cap PO SCH (19:12)
[2018-10-06] MEDS: metroNIDAZOLE IV 500 mg/100 ml 500 MG/100 ML BAG IVPB SCH ×2 (00:05→09:18)
[2018-10-06] MEDS: Sucralfate 1 gm/10 ml Oral Susp UD PO SCH ×4 (07:53→17:08)
[2018-10-06] MEDS: Metoprolol Succinate 25 mg XL Tab PO SCH (09:12)
[2018-10-06] MEDS: Ciprofloxacin 400mg/200ml D5W 400 MG/200 ML BAG IVPB SCH (10:00)
[2018-10-06] MEDS: Enoxaparin 40 mg Syringe SC SCH (10:00)
[2018-10-06] MEDS: Saccharomyces Boulardi 250 mg Cap PO SCH (11:00)
--- NOTE | 2018-10-06 14:01 | CP.PCM.PN ---
Subjective - Date & Time of Evaluation Date of Evaluation: 10/06/18 Time of Evaluation: 13:58 - Subjective Subjective: f/u abdominal pain D/W Dr Alvarado yesterday Today pt is nauseated. Says the Daveyl makes her nauseated. Also on antibiotics I suspect patient's GI symptoms are anxiety-related Objective - Vital Signs/Intake and Output Vital Signs (last 24 hours): Temp Pulse Resp BP Pulse Ox 97.8 F 86 20 138/75 99 10/06/18 08:21 10/06/18 12:30 10/06/18 08:21 10/06/18 08:21 10/06/18 08:21 Intake and Output: 10/06/18 10/06/18 06:59 18:59 Intake Total 1260 Balance 1260 - Medications Medications: Current Medications Amlodipine Besylate (Norvasc) 5 mg PO DAILY [facility] Last Admin: 10/06/18 09:12 Dose: 5 mg Enoxaparin Sodium (Lovenox) 40 mg SC DAILY [facility] Last Admin: 10/06/18 10:00 Dose: 40 mg Metronidazole (Flagyl) 500 mg in 100 mls @ 100 mls/hr IVPB Q8H [facility]; Protocol Last Admin: 10/06/18 09:18 Dose: 100 mls/hr Lorazepam (Ativan) 0.5 mg PO HS PRN PRN Reason: Anxiety Last Admin: 10/05/18 21:36 Dose: 0.5 mg Metoprolol Succinate (Toprol Xl) 25 mg PO DAILY [facility] Last Admin: 10/06/18 09:12 Dose: 25 mg Rosuvastatin Calcium (Crestor) 10 mg PO HS [facility] Last Admin: 10/05/18 21:36 Dose: 10 mg Saccharomyces Boulardii (Florastor) 250 mg PO BID [facility] Last Admin: 10/06/18 11:00 Dose: 250 mg Spironolactone (Aldactone) 25 mg PO DAILY [facility] Last Admin: 10/06/18 09:12 Dose: 25 mg Sucralfate (Carafate Oral Susp) 1 gm PO TID [facility] Last Admin: 10/06/18 12:59 Dose: 1 gm - Labs Labs: 10/05/18 13:59 10/05/18 13:59 - Constitutional Appears: No Acute Distress, Chronically Ill - Head Exam Head Exam: NORMOCEPHALIC - Eye Exam Eye Exam: absent: Scleral icterus - Respiratory Exam Respiratory Exam: NORMAL BREATHING PATTERN - Cardiovascular Exam Cardiovascular Exam: REGULAR RHYTHM - GI/Abdominal Exam GI & Abdominal Exam: Soft. absent: Tenderness Assessment and Plan (1) Abdominal pain Assessment & Plan: Stop Dicyclomine, antibiotics Trial of Elavil Recent EGD/Colon at [facility] reports reviewed- left sided colitis in july. nO SIGNS/SYMPTOMS OR LAB/ct EVIDENCE OF RECURRENT COLITIS Status: Acute
--- NOTE | 2018-10-06 15:45 | CP.PCM.DIS ---
Provider - Provider Date of Admission: 10/01/18 15:26 Attending physician: Umberto Castro MD Consults: 10/02/18 00:06 Gastroenterology Consult Routine Comment: Consulting Provider: Rigoberto Reveles Consulting Physician: Rigoberto Reveles Reason for Consult: Abd pain 10/02/18 01:40 Social Work Referral Routine Comment: Lives alone Physician Instructions: Reason For Exam: Clarence score 11 10/05/18 11:11 Gastroenterology Consult Routine Comment: Consulting Provider: Rigoberto Reveles Consulting Physician: Rigoberto Reveles Reason for Consult: Abdominal Pain Time Spent in preparation of Discharge (in minutes): 30 Diagnosis - Discharge Diagnosis (1) Abdominal pain Status: Acute (2) Diverticulitis Status: Acute (3) HTN (hypertension) Status: Chronic Priority: Medium (4) Thyroid nodule Status: Acute Hospital Course - Lab Results Lab Results: Micro Results 10/01/18 17:20 Blood Blood Culture - Preliminary NO GROWTH AFTER 4 DAYS 10/01/18 16:20 Blood Blood Culture - Preliminary NO GROWTH AFTER 4 DAYS Most Recent Lab Values WBC 6.7 K/uL (4.8-10.8) 10/05/18 13:59 RBC 3.40 Mil/uL (3.80-5.20) L 10/05/18 13:59 Hgb 11.0 g/dL (11.0-16.0) 10/05/18 13:59 Hct 32.2 % (34.0-47.0) L 10/05/18 13:59 MCV 94.6 fL (81.0-99.0) 10/05/18 13:59 MCH 32.3 pg (27.0-31.0) H 10/05/18 13:59 MCHC 34.2 g/dL (33.0-37.0) 10/05/18 13:59 RDW 15.5 % (11.5-14.5) H 10/05/18 13:59 Plt Count 302 K/uL (130-400) 10/05/18 13:59 MPV 8.4 fL (7.2-11.7) 10/05/18 13:59 Neut % (Auto) 73.5 % (50.0-75.0) 10/05/18 13:59 Lymph % (Auto) 17.2 % (20.0-40.0) L 10/05/18 13:59 [place] % (Auto) 8.0 % (0.0-10.0) 10/05/18 13:59 Eos % (Auto) 1.0 % (0.0-4.0) 10/05/18 13:59 Baso % (Auto) 0.3 % (0.0-2.0) 10/05/18 13:59 Neut # (Auto) 4.9 K/uL (1.8-7.0) 10/05/18 13:59 Lymph # (Auto) 1.2 K/uL (1.0-4.3) 10/05/18 13:59 [place] # (Auto) 0.5 K/uL (0.0-0.8) 10/05/18 13:59 Eos # (Auto) 0.1 K/uL (0.0-0.7) 10/05/18 13:59 Baso # (Auto) 0.0 K/uL (0.0-0.2) 10/05/18 13:59 ESR 35 mm/hr (0-20) H 10/05/18 13:59 Sodium 139 mmol/L (132-148) 10/05/18 13:59 Potassium 3.6 mmol/L (3.6-5.2) 10/05/18 13:59 Chloride 101 mmol/L (98-107) 10/05/18 13:59 Carbon Dioxide 28 mmol/L (22-30) 10/05/18 13:59 Anion Gap 13 (10-20) 10/05/18 13:59 BUN 10 mg/dL (7-17) 10/05/18 13:59 Creatinine 0.9 mg/dL (0.7-1.2) 10/05/18 13:59 Est GFR ( Amer) > 60 10/05/18 13:59 Est GFR (Non-Af Amer) 60 10/05/18 13:59 Random Glucose 100 mg/dL (65-105) 10/05/18 13:59 Calcium 9.2 mg/dl (8.6-10.4) 10/05/18 13:59 Total Bilirubin 0.5 mg/dL (0.2-1.3) 10/05/18 13:59 AST 48 U/L (14-36) H D 10/05/18 13:59 ALT 36 U/L (9-52) 10/05/18 13:59 Alkaline Phosphatase 100 U/L (38-126) 10/05/18 13:59 Total Creatine Kinase 31 U/L (30-135) 10/02/18 11:41 CK-MB (Mass) 0.24 ng/mL (0.0-3.38) 10/02/18 11:41 Troponin I < 0.0120 ng/mL (0.00-0.120) 10/02/18 11:41 NT-Pro-B Natriuret Pep 384 pg/mL (0-900) 10/01/18 11:12 Total Protein 6.8 g/dL (6.3-8.3) 10/05/18 13:59 Albumin 4.0 g/dL (3.5-5.0) 10/05/18 13:59 Globulin 2.9 gm/dL (2.2-3.9) 10/05/18 13:59 Albumin/Globulin Ratio 1.4 (1.0-2.1) 10/05/18 13:59 Amylase 55 U/L (30-110) 10/05/18 13:59 Lipase 55 U/L (23-300) 10/05/18 13:59 Urine Color Yellow (YELLOW) 10/05/18 13:07 Urine Clarity Clear (Clear) 10/05/18 13:07 Urine pH 8.0 (5.0-8.0) 10/05/18 13:07 Ur Specific [place] 1.008 (1.003-1.030) 10/05/18 13:07 Urine Protein Negative mg/dL (NEGATIVE) 10/05/18 13:07 Urine Glucose (UA) Normal mg/dL (Normal) 10/05/18 13:07 Urine Ketones Negative mg/dL (NEGATIVE) 10/05/18 13:07 Urine Blood Negative (NEGATIVE) 10/05/18 13:07 Urine Nitrate Negative (NEGATIVE) 10/05/18 13:07 Urine Bilirubin Negative (NEGATIVE) 10/05/18 13:07 Urine Urobilinogen Normal mg/dL (0.2-1.0) 10/05/18 13:07 Ur Leukocyte Esterase Neg Debra/uL (Negative) 10/05/18 13:07 Urine WBC (Auto) 1 /hpf (0-5) 10/05/18 13:07 Urine RBC (Auto) 2 /hpf (0-3) 10/05/18 13:07 Ur Squamous Epith Cells < 1 /hpf (0-5) 10/05/18 13:07 Urine Bacteria Rare (<OCC) 10/05/18 13:07 - Hospital Course Hospital Course: 83 years old female with PMH significant for HTN, Diverticulitis, AAA, Renal Cysts and Anxiety who presents to ER for abdominal pain. CT scan of the Abdomen shows Diverticulitis. Patient started on IV Cipro and IV Flagyl. GI consult requested. Patient's conditioned improved and was about to be discharged home when patient complained of abdominal pain and anxiety. An US of the Abdomen showed Renal Cysts. Patient started on Antidepressant and told to follow up at my office as outpatient. Discharge Exam - Head Exam Head Exam: ATRAUMATIC, NORMAL INSPECTION, NORMOCEPHALIC - Eye Exam Eye Exam: EOMI, Normal appearance Pupil Exam: PERRL - Respiratory Exam Respiratory Exam: Clear to PA & Lateral, NORMAL BREATHING PATTERN, UNREMARKABLE - Cardiovascular Exam Cardiovascular Exam: REGULAR RHYTHM, +S1, +S2 - GI/Abdominal Exam GI & Abdominal Exam: Normal Bowel Sounds, Unremarkable - Extremities Exam Extremities exam: full ROM - Back Exam Back exam: FULL ROM, NORMAL INSPECTION - Neurological Exam Neurological exam: Alert, CN II-XII Intact, Normal Gait, Oriented x3, Reflexes Normal Discharge Plan - Discharge Medications Prescriptions: Ciprofloxacin [Cipro] 500 mg PO Q12H 14 Days tab Saccharomyces Boulardi [Florastor] 250 mg PO BID 14 Days cap - Follow Up Plan Condition: STABLE Disposition: HOME/ ROUTINE Instructions: Ciprofloxacin (Systemic), Saccharomyces boulardii, Diverticulitis (DC), Acute Abdominal Pain (DC), Diverticulitis Diet (DC), Acute Abdominal Pain (GEN), Diverticulitis (GEN), Hypertension (DC), Hypertension (GEN) Additional Instructions: FOLLOW UP WITH DR CASTRO IN HIS OFFICE ----CALL FOR APPOINTMENT ADDRESS YOUR FINE NEEDED BIOPSY AT YOUR VISIT FOLLOW UP WITH DR REVELES IN 2 WEEK -----CALL FOR APPOINTMENT CONTINUE HOME MEDICATION NEW PRESCRIPTION GIVEN CIPRO 500 MG PO Q12H FOR 14 DAYS FLORASTOR 205 MG PO BID FOR 14 DAYS ACTIVITY TOLERATED CALL DR CASTRO OR GO TO THE EMERGENCY ROOM IF SYMPTOM RETURN OR WORSENING Referrals: Umberto Castro MD [Staff Provider] - Rigoberto Reveles MD [Staff Provider] -
[2018-10-06 16:07] VITALS: BP 155/79; PULSE 93; TEMP 98.1; O2SAT 96
== END 2018-10-06 17:58 | disposition home or self-care (01) | DRG 392 ==
LOC: C.ER 09:31 → C.9E 15:26 → C.6T 22:13
PROVIDERS: ADMIT Internal Medicine; ATTEND Internal Medicine
DX: K57.92 Diverticulitis of intestine, part unspecified, without perforation or abscess without bleeding (principal); K29.70 Gastritis, unspecified, without bleeding; I10 Essential (primary) hypertension; E87.6 Hypokalemia; E78.5 Hyperlipidemia, unspecified; K21.9 Gastro-esophageal reflux disease without esophagitis; F41.9 Anxiety disorder, unspecified; E04.1 Nontoxic single thyroid nodule; I71.4 Abdominal aortic aneurysm, without rupture; N28.1 Cyst of kidney, acquired